=== PATIENT | female | born 1950 | race Caucasian/White ===

== ENCOUNTER 2018-05-24 14:27 | Inpatient (IN) | payer BC ==
[~2018-05-24] VITALS: Ht 157.5 cm; Wt 41.7 kg
[2018-05-24 14:40] VITALS: BP_SYST 150
[2018-05-24] MEDS ORDERED: NACL 0.9% 1,000 ML IV ONE (15:00)
[2018-05-24 15:11] LABS: BASOPHILS % (AUTO) 0.5 % (0.0-2.0); EOSINOPHILS % (AUTO) 0.3 % (0.0-4.0); HEMATOCRIT 44.4 % (36-48); HEMOGLOBIN 14.5 g/dL (12.0-16.0); LYMPHOCYTES # (AUTO) 0.7 K/uL (1.0-5.5); LYMPHOCYTES % (AUTO) 8.4 % (20.5-51.5); MEAN CORPUSCULAR HEMOGLOBIN 30 pg (27-31); MEAN CORPUSCULAR HGB CONC 33 % (32-36); MEAN CORPUSCULAR VOLUME 93 fL (79.0-98.0); MONOCYTES # (AUTO) 0.7 K/uL (0.0-1.0); MONOCYTES % (AUTO) 8.7 % (1.7-9.3); NEUTROPHILS # (AUTO) 6.4 K/uL (1.8-7.7); NEUTROPHILS % (AUTO) 82.1 % (40.0-70.0); PLATELET COUNT (AUTO) 220 K/uL (130-430); RED BLOOD CELL COUNT(AUTO) 4.78 MIL/uL (4.2-6.2); RED CELL DISTRIBUTION WIDTH 12.5 % (9.0-15.0); WHITE BLOOD COUNT (AUTO) 7.8 K/uL (4.8-10.8)
[2018-05-24 15:18] LABS: ANION GAP 10 (5-15); CALCIUM 10.7 mg/dL (8.4-11.0); CHLORIDE 118 mmol/L (98-107); CREATININE 1.41 mg/dL (0.55-1.30); GFR AFRICAN AMERICAN 48 mL/min (>90); GLUCOSE 114 mg/dL (70-99); POTASSIUM 4.1 mmol/L (3.5-5.1); SODIUM SERUM 152 mmol/L (136-145); UREA NITROGEN, BLOOD 18 mg/dL (8-21)
[2018-05-24 15:23] LABS: ALANINE AMINOTRANSFERASE 19 U/L (12-78); ALBUMIN 3.5 g/dL (3.4-4.8); ASPARTATE AMINOTRANSFERASE 20 U/L (10-37); TOTAL BILIRUBIN 0.4 mg/dL (0.0-1.0)
[2018-05-24 15:24] LABS: ACETAMINOPHEN < 1 ug/mL (1-30); ALCOHOL, BLOOD < 3 mg/dL (<10)
[2018-05-24 17:38] LABS: BILIRUBIN,URINE NEGATIVE (NEGATIVE); CLARITY/URINE CLEAR (CLEAR); COLOR,URINE YELLOW (YELLOW); GLUCOSE,URINE NEGATIVE (NEGATIVE); KETONES,URINE NEGATIVE (NEGATIVE); LEUKOCYTE ESTERASE ,URINE TRACE (NEGATIVE); NITRITE, URINE POSITIVE (NEGATIVE); PROTEIN URINE NEGATIVE (NEGATIVE); UROBILINOGEN,URINE 0.2 (0.2-1.0)
[2018-05-24 17:40] LABS: BLOOD, URINE TRACE (NEGATIVE)
[2018-05-24 17:43] LABS: BACTERIA,URINE MANY /HPF (None Seen)
[2018-05-24 17:52] LABS: BARBITURATE, URINE NEGATIVE (NEG <=200); BENZODIAZEPINE, URINE NEGATIVE (NEG <=150); CANNABINOID, URINE NEGATIVE (NEG <=50); COCAINE, URINE NEGATIVE (NEG <=150); METHAMPHETAMINES SCREEN,URINE NEGATIVE (NEG <=500); OPIATE, URINE NEGATIVE (NEG <=100); PHENCYCLIDINE SCREEN,URINE NEGATIVE (NEG <=25); UR TRICYCLIC ANTIDEPRESSANTS NEGATIVE (NEG <=300); URINE AMPHETAMINE NEGATIVE (NEG <=500); URINE METHADONE NEGATIVE (NEG <=200); URINE OXYCODONE SCREEN NEGATIVE (NEG <=100); URINE PROPOXYPHENE SCREEN NEGATIVE (NEG <=300)
[2018-05-24] MEDS ORDERED: SER25 PO (18:09)
[2018-05-24] MEDS ORDERED: ATOR10TA68 PO (18:09)
[2018-05-24] MEDS ORDERED: FLEETMO RC (18:09)
[2018-05-24] MEDS ORDERED: ASPI-1153 PO (18:09)
[2018-05-24] MEDS ORDERED: POLY17PO17 PO (18:09)
[2018-05-24] MEDS ORDERED: METH5TAB70 PO (18:09)
[2018-05-24] MEDS ORDERED: ANT30 PO (18:09)
[2018-05-24] MEDS ORDERED: LITH8SOL6 PO (18:09)
[2018-05-24] MEDS ORDERED: LACT10SO6 PO (18:09)
[2018-05-24] MEDS ORDERED: MOM PO (18:09)
[2018-05-24] MEDS ORDERED: AMLO5TAB4 PO (18:09)
[2018-05-24] MEDS ORDERED: ACET-2634 PO (18:09)
[2018-05-24] MEDS ORDERED: DEXTROSE 50% JECT 50 ML DISP.SYRIN IVP PRN ×2 (22:00)
[2018-05-24] MEDS ORDERED: LEVOFLOXACIN 500 MG/D5W 100 ML IV SCH (22:00)
[2018-05-24] MEDS ORDERED: HYDROcodone/ACETAMIN 5-325 MG TAB (NORCO/ VICODIN) PO PRN (22:00)
[2018-05-24] MEDS ORDERED: MAG-AL HYDROX/SIMETH 30 ML UDC PO PRN (22:00)
[2018-05-24] MEDS ORDERED: ACETAMINOPHEN 500 MG TABLET PO PRN (22:00)
[2018-05-24] MEDS ORDERED: MILK OF MAGNESIA 30 ML UDC PO PRN (22:00)
[2018-05-24] MEDS ORDERED: ONDANSETRON HCL 4 MG/2 ML VIAL IVP PRN (22:00)
[2018-05-24 22:15] VITALS: BP_SYST 151
[2018-05-24 22:27] VITALS: BP_SYST 151
[2018-05-24] MEDS ORDERED: D5W 1,000 ML IV SCH (22:45)
[2018-05-24] MEDS: NORMAL SALINE 5 ML DISP.SYRIN IVF SCH (22:49)
[2018-05-24] MEDS: D5W 1,000 ML IV SCH (22:49)
[2018-05-25 06:53] LABS: BASOPHILS % (AUTO) 0.4 % (0.0-2.0); EOSINOPHILS % (AUTO) 0.2 % (0.0-4.0); HEMATOCRIT 45.7 % (36-48); LYMPHOCYTES # (AUTO) 0.7 K/uL (1.0-5.5); LYMPHOCYTES % (AUTO) 9.1 % (20.5-51.5); MEAN CORPUSCULAR HEMOGLOBIN 31 pg (27-31); MEAN CORPUSCULAR HGB CONC 33 % (32-36); MEAN CORPUSCULAR VOLUME 95 fL (79.0-98.0); MONOCYTES # (AUTO) 0.6 K/uL (0.0-1.0); MONOCYTES % (AUTO) 8.5 % (1.7-9.3); NEUTROPHILS # (AUTO) 5.9 K/uL (1.8-7.7); NEUTROPHILS % (AUTO) 81.8 % (40.0-70.0); PLATELET COUNT (AUTO) 249 K/uL (130-430); RED BLOOD CELL COUNT(AUTO) 4.81 MIL/uL (4.2-6.2); RED CELL DISTRIBUTION WIDTH 12.7 % (9.0-15.0); WHITE BLOOD COUNT (AUTO) 7.2 K/uL (4.8-10.8)
[2018-05-25] MEDS: NORMAL SALINE 5 ML DISP.SYRIN IVF SCH ×3 (06:59→21:18)
[2018-05-25 07:26] LABS: ALANINE AMINOTRANSFERASE 25 U/L (12-78); ALBUMIN 3.5 g/dL (3.4-4.8); ANION GAP 9 (5-15); ASPARTATE AMINOTRANSFERASE 21 U/L (10-37); C-REACTIVE PROTEIN QUANT < 0.2 mg/dL (0-0.5); CALCIUM 10.5 mg/dL (8.4-11.0); CREATININE 1.47 mg/dL (0.55-1.30); GLUCOSE 138 mg/dL (70-99); PHOSPHORUS 3.5 mg/dL (2.7-4.5); POTASSIUM 4.1 mmol/L (3.5-5.1); SODIUM SERUM 153 mmol/L (136-145); TOTAL BILIRUBIN 0.6 mg/dL (0.0-1.0); UREA NITROGEN, BLOOD 18 mg/dL (8-21)
[2018-05-25 07:32] LABS: GFR AFRICAN AMERICAN 45 mL/min (>90)
[2018-05-25 07:34] LABS: CHLORIDE 121 mmol/L (98-107)
[2018-05-25 08:00] VITALS: BP_SYST 136
[2018-05-25 08:26] LABS: ERYTHROCYTE SEDIMENTATION RATE 9 MM/HR (0-20)
[2018-05-25] MEDS ORDERED: LITHIUM CITRATE 8 MEQ PO SCH (09:00)
[2018-05-25] MEDS: LORazepam 2 MG/ML VIAL IVP PRN ×2 (09:39→21:35)
[2018-05-25] MEDS: D5W 1,000 ML IV SCH ×2 (09:42→17:20)
[2018-05-25] MEDS: ATORVASTATIN 10 MG TABLET PO SCH (09:43)
[2018-05-25] MEDS: QUEtiapine FUMARATE 25 MG TABLET PO SCH ×2 (09:43→21:08)
[2018-05-25] MEDS: ASPIRIN 81 MG TABLET(ECOTRIN) PO SCH (09:43)
[2018-05-25] MEDS: METHIMAZOLE 5 MG TABLET PO SCH ×3 (09:43→21:08)
[2018-05-25] MEDS: LACTULOSE 20 GM/30 ML UDC PO SCH (09:44)
[2018-05-25] MEDS: amLODIPine BESYLATE 5 MG TABLET PO SCH (09:44)
[2018-05-25] MEDS: POLYETHYLENE GLYCOL 3350, 17 GM/ POWD.PACK PO SCH (09:44)
[2018-05-25] MEDS: MINERAL OIL 133 ML ENEMA RC SCH (09:51)
[2018-05-25 12:18] VITALS: BP_SYST 124
[2018-05-25 16:00] VITALS: BP_SYST 128
[2018-05-25] MEDS: LEVOFLOXACIN 250 MG/D5W 50 ML IV SCH (17:20)
[2018-05-25 19:50] VITALS: BP_SYST 123
[2018-05-25 23:54] VITALS: BP_SYST 121
[2018-05-26 04:55] VITALS: BP_SYST 138
[2018-05-26] MEDS: LORazepam 2 MG/ML VIAL IVP PRN ×4 (05:06→20:09)
[2018-05-26] MEDS: D5W 1,000 ML IV SCH ×2 (05:11→16:16)
[2018-05-26] MEDS: NORMAL SALINE 5 ML DISP.SYRIN IVF SCH ×3 (05:56→20:19)
[2018-05-26 06:52] LABS: BASOPHILS % (AUTO) 0.4 % (0.0-2.0); EOSINOPHILS # (AUTO) 0.1 K/uL (0.0-0.4); EOSINOPHILS % (AUTO) 1.9 % (0.0-4.0); HEMATOCRIT 41.8 % (36-48); HEMOGLOBIN 13.6 g/dL (12.0-16.0); LYMPHOCYTES # (AUTO) 1.6 K/uL (1.0-5.5); LYMPHOCYTES % (AUTO) 20.9 % (20.5-51.5); MEAN CORPUSCULAR HEMOGLOBIN 31 pg (27-31); MEAN CORPUSCULAR HGB CONC 33 % (32-36); MEAN CORPUSCULAR VOLUME 94 fL (79.0-98.0); MONOCYTES # (AUTO) 0.8 K/uL (0.0-1.0); MONOCYTES % (AUTO) 10.3 % (1.7-9.3); NEUTROPHILS # (AUTO) 4.9 K/uL (1.8-7.7); NEUTROPHILS % (AUTO) 66.5 % (40.0-70.0); PLATELET COUNT (AUTO) 211 K/uL (130-430); RED BLOOD CELL COUNT(AUTO) 4.43 MIL/uL (4.2-6.2); RED CELL DISTRIBUTION WIDTH 12.5 % (9.0-15.0); WHITE BLOOD COUNT (AUTO) 7.4 K/uL (4.8-10.8)
[2018-05-26 07:16] LABS: ANION GAP 8 (5-15); CALCIUM 9.5 mg/dL (8.4-11.0); CHLORIDE 110 mmol/L (98-107); CREATININE 1.39 mg/dL (0.55-1.30); GLUCOSE 108 mg/dL (70-99); PHOSPHORUS 2.6 mg/dL (2.7-4.5); POTASSIUM 3.7 mmol/L (3.5-5.1); SODIUM SERUM 140 mmol/L (136-145); UREA NITROGEN, BLOOD 17 mg/dL (8-21)
[2018-05-26 07:19] LABS: GFR AFRICAN AMERICAN 48 mL/min (>90)
[2018-05-26 07:31] LABS: C-REACTIVE PROTEIN QUANT < 0.2 mg/dL (0-0.5)
[2018-05-26 08:05] VITALS: BP_SYST 146
[2018-05-26] MEDS: METHIMAZOLE 5 MG TABLET PO SCH ×3 (08:33→20:08)
[2018-05-26] MEDS: ATORVASTATIN 10 MG TABLET PO SCH (08:33)
[2018-05-26] MEDS: LACTULOSE 20 GM/30 ML UDC PO SCH ×2 (08:33→09:00)
[2018-05-26] MEDS: ASPIRIN 81 MG TABLET(ECOTRIN) PO SCH (08:33)
[2018-05-26] MEDS: POLYETHYLENE GLYCOL 3350, 17 GM/ POWD.PACK PO SCH ×2 (08:34→09:00)
[2018-05-26] MEDS: QUEtiapine FUMARATE 25 MG TABLET PO SCH ×2 (08:34→20:08)
[2018-05-26] MEDS: amLODIPine BESYLATE 5 MG TABLET PO SCH (08:34)
[2018-05-26 08:38] LABS: ERYTHROCYTE SEDIMENTATION RATE 5 MM/HR (0-20)
[2018-05-26] MEDS: MINERAL OIL 133 ML ENEMA RC SCH (09:51)
[2018-05-26 11:16] VITALS: BP_SYST 142
[2018-05-26] MEDS ORDERED: K PHOS 15 MM in NS 250 ML IV ONE (13:00)
[2018-05-26 16:31] VITALS: BP_SYST 155
[2018-05-26] MEDS: LEVOFLOXACIN 250 MG/D5W 50 ML IV SCH (17:37)
[2018-05-26 20:00] VITALS: BP_SYST 151
[2018-05-27 00:09] VITALS: BP_SYST 150
[2018-05-27] MEDS: D5W 1,000 ML IV SCH ×3 (01:26→20:32)
[2018-05-27] MEDS: LORazepam 2 MG/ML VIAL IVP PRN ×5 (05:00→23:28)
[2018-05-27] MEDS: NORMAL SALINE 5 ML DISP.SYRIN IVF SCH ×3 (05:59→22:53)
[2018-05-27 06:24] LABS: BASOPHILS % (AUTO) 0.6 % (0.0-2.0); EOSINOPHILS # (AUTO) 0.1 K/uL (0.0-0.4); EOSINOPHILS % (AUTO) 2.2 % (0.0-4.0); HEMATOCRIT 41.5 % (36-48); HEMOGLOBIN 13.6 g/dL (12.0-16.0); LYMPHOCYTES # (AUTO) 1.4 K/uL (1.0-5.5); MEAN CORPUSCULAR HEMOGLOBIN 31 pg (27-31); MEAN CORPUSCULAR HGB CONC 33 % (32-36); MEAN CORPUSCULAR VOLUME 94 fL (79.0-98.0); MONOCYTES # (AUTO) 0.6 K/uL (0.0-1.0); MONOCYTES % (AUTO) 10.1 % (1.7-9.3); NEUTROPHILS # (AUTO) 3.7 K/uL (1.8-7.7); NEUTROPHILS % (AUTO) 63.1 % (40.0-70.0); PLATELET COUNT (AUTO) 209 K/uL (130-430); RED CELL DISTRIBUTION WIDTH 12.6 % (9.0-15.0); WHITE BLOOD COUNT (AUTO) 5.8 K/uL (4.8-10.8)
[2018-05-27 06:28] LABS: ANION GAP 11 (5-15); CALCIUM 9.2 mg/dL (8.4-11.0); CHLORIDE 115 mmol/L (98-107); CREATININE 1.25 mg/dL (0.55-1.30); GLUCOSE 104 mg/dL (70-99); PHOSPHORUS 3.7 mg/dL (2.7-4.5); POTASSIUM 3.7 mmol/L (3.5-5.1); SODIUM SERUM 148 mmol/L (136-145); UREA NITROGEN, BLOOD 14 mg/dL (8-21)
[2018-05-27 06:29] LABS: GFR AFRICAN AMERICAN 55 mL/min (>90)
[2018-05-27 07:40] LABS: C-REACTIVE PROTEIN QUANT < 0.2 mg/dL (0-0.5)
[2018-05-27 08:00] VITALS: BP_SYST 145
[2018-05-27] MEDS: METHIMAZOLE 5 MG TABLET PO SCH ×3 (08:07→20:32)
[2018-05-27] MEDS: POLYETHYLENE GLYCOL 3350, 17 GM/ POWD.PACK PO SCH ×2 (08:08→09:00)
[2018-05-27] MEDS: ATORVASTATIN 10 MG TABLET PO SCH (08:08)
[2018-05-27] MEDS: LACTULOSE 20 GM/30 ML UDC PO SCH ×2 (08:08→09:00)
[2018-05-27] MEDS: amLODIPine BESYLATE 5 MG TABLET PO SCH (08:08)
[2018-05-27] MEDS: QUEtiapine FUMARATE 25 MG TABLET PO SCH ×2 (08:08→20:32)
[2018-05-27] MEDS: ASPIRIN 81 MG TABLET(ECOTRIN) PO SCH (08:08)
[2018-05-27 08:34] LABS: ERYTHROCYTE SEDIMENTATION RATE 5 MM/HR (0-20)
[2018-05-27] MEDS: MINERAL OIL 133 ML ENEMA RC SCH (09:08)
[2018-05-27 12:11] VITALS: BP_SYST 123
[2018-05-27 16:01] VITALS: BP_SYST 119
[2018-05-27] MEDS: LEVOFLOXACIN 250 MG/D5W 50 ML IV SCH (17:11)
[2018-05-27] MEDS ORDERED: LEVOFLOXACIN 250 MG TABLET PO SCH (18:00)
[2018-05-27] MEDS: VANCOMYCIN HCL 750 MG in NS 250 ML IV SCH (18:26)
[2018-05-27 19:00] VITALS: BP_SYST 115
[2018-05-27 20:00] VITALS: BP_SYST 115
[2018-05-27] MEDS: MINERAL OIL/PETROLATUM,WHITE 113 GM CREAM.GM. TP SCH (20:48)
[2018-05-27] MEDS ORDERED: AMMONIUM LACTATE 12%, 400 ML LOTION TP SCH (21:00)
[2018-05-28 00:38] VITALS: BP_SYST 116
[2018-05-28] MEDS: NORMAL SALINE 5 ML DISP.SYRIN IVF SCH ×2 (05:25→22:01)
[2018-05-28] MEDS: D5W 1,000 ML IV SCH ×2 (05:26→23:35)
[2018-05-28 06:25] LABS: BASOPHILS % (AUTO) 0.6 % (0.0-2.0); EOSINOPHILS # (AUTO) 0.1 K/uL (0.0-0.4); EOSINOPHILS % (AUTO) 2.6 % (0.0-4.0); HEMATOCRIT 41.5 % (36-48); HEMOGLOBIN 13.5 g/dL (12.0-16.0); LYMPHOCYTES # (AUTO) 1.1 K/uL (1.0-5.5); LYMPHOCYTES % (AUTO) 22.9 % (20.5-51.5); MEAN CORPUSCULAR HEMOGLOBIN 31 pg (27-31); MEAN CORPUSCULAR HGB CONC 33 % (32-36); MEAN CORPUSCULAR VOLUME 94 fL (79.0-98.0); MONOCYTES # (AUTO) 0.5 K/uL (0.0-1.0); MONOCYTES % (AUTO) 11.2 % (1.7-9.3); NEUTROPHILS # (AUTO) 3.2 K/uL (1.8-7.7); NEUTROPHILS % (AUTO) 62.7 % (40.0-70.0); PLATELET COUNT (AUTO) 209 K/uL (130-430); RED CELL DISTRIBUTION WIDTH 12.5 % (9.0-15.0); WHITE BLOOD COUNT (AUTO) 4.9 K/uL (4.8-10.8)
[2018-05-28] MEDS: LORazepam 2 MG/ML VIAL IVP PRN ×3 (06:28→23:24)
[2018-05-28 06:46] LABS: C-REACTIVE PROTEIN QUANT 0.3 mg/dL (0-0.5); CALCIUM 9.7 mg/dL (8.4-11.0); CREATININE 1.18 mg/dL (0.55-1.30); PHOSPHORUS 3.2 mg/dL (2.7-4.5); POTASSIUM 3.6 mmol/L (3.5-5.1); TOTAL BILIRUBIN 0.5 mg/dL (0.0-1.0)
[2018-05-28 08:33] VITALS: BP_SYST 147
[2018-05-28 08:56] LABS: ERYTHROCYTE SEDIMENTATION RATE 7 MM/HR (0-20)
[2018-05-28] MEDS: MINERAL OIL 133 ML ENEMA RC SCH (09:00)
[2018-05-28] MEDS: QUEtiapine FUMARATE 25 MG TABLET PO SCH ×2 (09:25→22:02)
[2018-05-28] MEDS: amLODIPine BESYLATE 5 MG TABLET PO SCH (09:25)
[2018-05-28] MEDS: LACTULOSE 20 GM/30 ML UDC PO SCH (09:35)
[2018-05-28] MEDS: METHIMAZOLE 5 MG TABLET PO SCH ×2 (09:35→22:01)
[2018-05-28] MEDS: ATORVASTATIN 10 MG TABLET PO SCH (09:35)
[2018-05-28] MEDS: POLYETHYLENE GLYCOL 3350, 17 GM/ POWD.PACK PO SCH (09:35)
[2018-05-28] MEDS: ASPIRIN 81 MG TABLET(ECOTRIN) PO SCH (09:35)
[2018-05-28 11:42] VITALS: BP_SYST 136
[2018-05-28] MEDS: MINERAL OIL/PETROLATUM,WHITE 113 GM CREAM.GM. TP SCH ×2 (12:46→21:59)
[2018-05-28] MEDS ORDERED: LITHIUM CARBONATE 300 MG TABLET.SA PO ONE (13:00)
[2018-05-28] MEDS: LEVOFLOXACIN 250 MG/D5W 50 ML IV SCH (18:00)
[2018-05-28] MEDS: LITHIUM CARBONATE 300 MG TABLET.SA PO SCH (22:01)
[2018-05-29 00:02] VITALS: BP_SYST 122
[2018-05-29] MEDS: D5W 1,000 ML IV SCH ×3 (03:00→22:20)
[2018-05-29] MEDS ORDERED: HALOPERIDOL LACTATE 5 MG/ML VIAL IVP SCH (03:00)
[2018-05-29 04:04] VITALS: BP_SYST 104
[2018-05-29] MEDS: VANCOMYCIN HCL 750 MG in NS 250 ML IV SCH (07:08)
[2018-05-29] MEDS: NORMAL SALINE 5 ML DISP.SYRIN IVF SCH ×3 (07:08→20:25)
[2018-05-29 07:09] LABS: BASOPHILS % (AUTO) 0.6 % (0.0-2.0); EOSINOPHILS # (AUTO) 0.2 K/uL (0.0-0.4); EOSINOPHILS % (AUTO) 3.1 % (0.0-4.0); HEMATOCRIT 40.4 % (36-48); HEMOGLOBIN 13.4 g/dL (12.0-16.0); LYMPHOCYTES # (AUTO) 1.1 K/uL (1.0-5.5); LYMPHOCYTES % (AUTO) 22.6 % (20.5-51.5); MEAN CORPUSCULAR HEMOGLOBIN 31 pg (27-31); MEAN CORPUSCULAR HGB CONC 33 % (32-36); MEAN CORPUSCULAR VOLUME 94 fL (79.0-98.0); MONOCYTES # (AUTO) 0.7 K/uL (0.0-1.0); MONOCYTES % (AUTO) 13.4 % (1.7-9.3); NEUTROPHILS % (AUTO) 60.3 % (40.0-70.0); PLATELET COUNT (AUTO) 201 K/uL (130-430); RED CELL DISTRIBUTION WIDTH 12.6 % (9.0-15.0)
[2018-05-29 07:21] LABS: ANION GAP 7 (5-15); CALCIUM 9.7 mg/dL (8.4-11.0); CHLORIDE 113 mmol/L (98-107); CREATININE 1.38 mg/dL (0.55-1.30); GLUCOSE 151 mg/dL (70-99); PHOSPHORUS 3.2 mg/dL (2.7-4.5); POTASSIUM 3.6 mmol/L (3.5-5.1); SODIUM SERUM 145 mmol/L (136-145); UREA NITROGEN, BLOOD 13 mg/dL (8-21)
[2018-05-29 07:27] LABS: GFR AFRICAN AMERICAN 49 mL/min (>90)
[2018-05-29 07:41] LABS: C-REACTIVE PROTEIN QUANT < 0.2 mg/dL (0-0.5)
[2018-05-29 08:00] VITALS: BP_SYST 131
[2018-05-29 08:10] LABS: ERYTHROCYTE SEDIMENTATION RATE 8 MM/HR (0-20)
[2018-05-29] MEDS: LACTULOSE 20 GM/30 ML UDC PO SCH (08:36)
[2018-05-29] MEDS: ATORVASTATIN 10 MG TABLET PO SCH (08:37)
[2018-05-29] MEDS: LITHIUM CARBONATE 300 MG TABLET.SA PO SCH ×2 (08:37→20:20)
[2018-05-29] MEDS: amLODIPine BESYLATE 5 MG TABLET PO SCH (08:37)
[2018-05-29] MEDS: POLYETHYLENE GLYCOL 3350, 17 GM/ POWD.PACK PO SCH (08:37)
[2018-05-29] MEDS: METHIMAZOLE 5 MG TABLET PO SCH ×3 (08:37→20:19)
[2018-05-29] MEDS: QUEtiapine FUMARATE 25 MG TABLET PO SCH ×3 (08:37→20:20)
[2018-05-29] MEDS: ASPIRIN 81 MG TABLET(ECOTRIN) PO SCH (08:37)
[2018-05-29] MEDS: MINERAL OIL/PETROLATUM,WHITE 113 GM CREAM.GM. TP SCH ×2 (09:01→20:21)
[2018-05-29] MEDS: MINERAL OIL 133 ML ENEMA RC SCH (09:01)
[2018-05-29 12:00] VITALS: BP_SYST 116
[2018-05-29 16:00] VITALS: BP_SYST 117
[2018-05-29] MEDS: LEVOFLOXACIN 250 MG/D5W 50 ML IV SCH (17:04)
[2018-05-29 20:00] VITALS: BP_SYST 124
[2018-05-29] MEDS: LORazepam 2 MG/ML VIAL IVP PRN (20:20)
[2018-05-30] MEDS: LORazepam 2 MG/ML VIAL IVP PRN ×4 (00:30→22:21)
[2018-05-30 00:35] VITALS: BP_SYST 123
[2018-05-30] MEDS: NORMAL SALINE 5 ML DISP.SYRIN IVF SCH ×3 (05:34→22:22)
[2018-05-30 07:43] LABS: BASOPHILS % (AUTO) 0.5 % (0.0-2.0); EOSINOPHILS # (AUTO) 0.2 K/uL (0.0-0.4); EOSINOPHILS % (AUTO) 3.3 % (0.0-4.0); HEMOGLOBIN 13.7 g/dL (12.0-16.0); LYMPHOCYTES # (AUTO) 1.2 K/uL (1.0-5.5); MEAN CORPUSCULAR HEMOGLOBIN 30 pg (27-31); MEAN CORPUSCULAR HGB CONC 32 % (32-36); MEAN CORPUSCULAR VOLUME 95 fL (79.0-98.0); MONOCYTES # (AUTO) 0.6 K/uL (0.0-1.0); MONOCYTES % (AUTO) 10.2 % (1.7-9.3); NEUTROPHILS # (AUTO) 4.2 K/uL (1.8-7.7); PLATELET COUNT (AUTO) 191 K/uL (130-430); RED BLOOD CELL COUNT(AUTO) 4.53 MIL/uL (4.2-6.2); RED CELL DISTRIBUTION WIDTH 12.3 % (9.0-15.0); WHITE BLOOD COUNT (AUTO) 6.2 K/uL (4.8-10.8)
[2018-05-30 08:02] VITALS: BP_SYST 142
[2018-05-30 08:13] LABS: ALBUMIN 2.8 g/dL (3.4-4.8); C-REACTIVE PROTEIN QUANT 0.3 mg/dL (0-0.5); CALCIUM 9.9 mg/dL (8.4-11.0); CREATININE 1.38 mg/dL (0.55-1.30); PHOSPHORUS 3.1 mg/dL (2.7-4.5); POTASSIUM 3.9 mmol/L (3.5-5.1); TOTAL BILIRUBIN 0.7 mg/dL (0.0-1.0)
[2018-05-30 08:34] LABS: ERYTHROCYTE SEDIMENTATION RATE 7 MM/HR (0-20)
[2018-05-30] MEDS: MINERAL OIL 133 ML ENEMA RC SCH (09:00)
[2018-05-30] MEDS: POLYETHYLENE GLYCOL 3350, 17 GM/ POWD.PACK PO SCH (09:00)
[2018-05-30] MEDS: MINERAL OIL/PETROLATUM,WHITE 113 GM CREAM.GM. TP SCH ×2 (09:00→20:57)
[2018-05-30] MEDS: D5W 1,000 ML IV SCH ×2 (09:00→13:02)
[2018-05-30] MEDS: ASPIRIN 81 MG TABLET(ECOTRIN) PO SCH (10:44)
[2018-05-30] MEDS: LACTULOSE 20 GM/30 ML UDC PO SCH (10:44)
[2018-05-30] MEDS: ATORVASTATIN 10 MG TABLET PO SCH (10:45)
[2018-05-30] MEDS: LITHIUM CARBONATE 300 MG TABLET.SA PO SCH ×2 (10:45→20:51)
[2018-05-30] MEDS: OLANZapine 10 MG TAB.RAPDIS PO SCH ×3 (10:46→20:51)
[2018-05-30] MEDS: amLODIPine BESYLATE 5 MG TABLET PO SCH (10:46)
[2018-05-30] MEDS: METHIMAZOLE 5 MG TABLET PO SCH ×3 (11:27→20:51)
[2018-05-30 16:13] VITALS: BP_SYST 107
[2018-05-30] MEDS: LEVOFLOXACIN 250 MG/D5W 50 ML IV SCH (17:01)
[2018-05-30] MEDS: VANCOMYCIN HCL 750 MG in NS 250 ML IV SCH (18:17)
[2018-05-30 19:30] VITALS: BP_SYST 112
[2018-05-30 23:20] VITALS: BP_SYST 140
[2018-05-31] MEDS: D5W 1,000 ML IV SCH ×2 (02:19→14:18)
[2018-05-31] MEDS: NORMAL SALINE 5 ML DISP.SYRIN IVF SCH ×3 (05:47→22:56)
[2018-05-31 07:15] LABS: BASOPHILS % (AUTO) 0.5 % (0.0-2.0); EOSINOPHILS # (AUTO) 0.3 K/uL (0.0-0.4); EOSINOPHILS % (AUTO) 5.5 % (0.0-4.0); HEMATOCRIT 41.3 % (36-48); HEMOGLOBIN 13.6 g/dL (12.0-16.0); LYMPHOCYTES # (AUTO) 1.3 K/uL (1.0-5.5); LYMPHOCYTES % (AUTO) 26.8 % (20.5-51.5); MEAN CORPUSCULAR HEMOGLOBIN 31 pg (27-31); MEAN CORPUSCULAR HGB CONC 33 % (32-36); MEAN CORPUSCULAR VOLUME 95 fL (79.0-98.0); MONOCYTES # (AUTO) 0.5 K/uL (0.0-1.0); MONOCYTES % (AUTO) 11.1 % (1.7-9.3); NEUTROPHILS # (AUTO) 2.7 K/uL (1.8-7.7); NEUTROPHILS % (AUTO) 56.1 % (40.0-70.0); PLATELET COUNT (AUTO) 191 K/uL (130-430); RED BLOOD CELL COUNT(AUTO) 4.36 MIL/uL (4.2-6.2); RED CELL DISTRIBUTION WIDTH 12.3 % (9.0-15.0); WHITE BLOOD COUNT (AUTO) 4.8 K/uL (4.8-10.8)
[2018-05-31 07:19] LABS: C-REACTIVE PROTEIN QUANT 0.4 mg/dL (0-0.5); CALCIUM 9.7 mg/dL (8.4-11.0); CREATININE 1.32 mg/dL (0.55-1.30); PHOSPHORUS 3.8 mg/dL (2.7-4.5); POTASSIUM 4.1 mmol/L (3.5-5.1)
[2018-05-31 08:12] VITALS: BP_SYST 124
[2018-05-31] MEDS: LITHIUM CARBONATE 300 MG TABLET.SA PO SCH ×2 (08:30→20:28)
[2018-05-31] MEDS: ASPIRIN 81 MG TABLET(ECOTRIN) PO SCH (08:30)
[2018-05-31] MEDS: ATORVASTATIN 10 MG TABLET PO SCH (08:30)
[2018-05-31] MEDS: METHIMAZOLE 5 MG TABLET PO SCH ×4 (08:30→20:28)
[2018-05-31] MEDS: LACTULOSE 20 GM/30 ML UDC PO SCH (08:30)
[2018-05-31] MEDS: OLANZapine 10 MG TAB.RAPDIS PO SCH ×4 (08:31→20:28)
[2018-05-31] MEDS: amLODIPine BESYLATE 5 MG TABLET PO SCH (08:31)
[2018-05-31] MEDS: POLYETHYLENE GLYCOL 3350, 17 GM/ POWD.PACK PO SCH (08:31)
[2018-05-31] MEDS: MINERAL OIL/PETROLATUM,WHITE 113 GM CREAM.GM. TP SCH ×2 (08:32→20:58)
[2018-05-31] MEDS: MINERAL OIL 133 ML ENEMA RC SCH (09:00)
[2018-05-31 09:22] LABS: ERYTHROCYTE SEDIMENTATION RATE 9 MM/HR (0-20)
[2018-05-31] MEDS: LORazepam 2 MG/ML VIAL IVP PRN ×2 (10:45→18:45)
[2018-05-31 12:02] VITALS: BP_SYST 107
[2018-05-31 17:53] VITALS: BP_SYST 116
[2018-05-31] MEDS: LEVOFLOXACIN 250 MG/D5W 50 ML IV SCH (18:14)
[2018-05-31] MEDS: VANCOMYCIN HCL 750 MG in NS 250 ML IV SCH (19:41)
[2018-05-31 20:20] VITALS: BP_SYST 120
[2018-05-31] MEDS: HYDROcodone/ACETAMIN 10-325 MG TAB PO PRN (20:29)
[2018-05-31 23:10] VITALS: BP_SYST 124
[2018-06-01 00:53] VITALS: BP_SYST 124
[2018-06-01] MEDS: D5W 1,000 ML IV SCH ×3 (03:06→21:00)
[2018-06-01] MEDS: LORazepam 2 MG/ML VIAL IVP PRN ×3 (03:58→20:22)
[2018-06-01] MEDS: NORMAL SALINE 5 ML DISP.SYRIN IVF SCH ×3 (06:00→21:10)
[2018-06-01] MEDS ORDERED: HALOPERIDOL LACTATE 5 MG/ML VIAL IM ONE (06:30)
[2018-06-01 07:11] LABS: BASOPHILS % (AUTO) 0.5 % (0.0-2.0); EOSINOPHILS # (AUTO) 0.2 K/uL (0.0-0.4); EOSINOPHILS % (AUTO) 4.3 % (0.0-4.0); HEMATOCRIT 40.8 % (36-48); HEMOGLOBIN 13.3 g/dL (12.0-16.0); LYMPHOCYTES % (AUTO) 19.8 % (20.5-51.5); MEAN CORPUSCULAR HEMOGLOBIN 31 pg (27-31); MEAN CORPUSCULAR HGB CONC 33 % (32-36); MEAN CORPUSCULAR VOLUME 94 fL (79.0-98.0); MONOCYTES # (AUTO) 0.6 K/uL (0.0-1.0); MONOCYTES % (AUTO) 12.4 % (1.7-9.3); PLATELET COUNT (AUTO) 194 K/uL (130-430); RED BLOOD CELL COUNT(AUTO) 4.33 MIL/uL (4.2-6.2); RED CELL DISTRIBUTION WIDTH 12.4 % (9.0-15.0); WHITE BLOOD COUNT (AUTO) 4.8 K/uL (4.8-10.8)
[2018-06-01 07:46] LABS: ALANINE AMINOTRANSFERASE 22 U/L (12-78); ALBUMIN 2.8 g/dL (3.4-4.8); ANION GAP 6 (5-15); ASPARTATE AMINOTRANSFERASE 20 U/L (10-37); CALCIUM 9.7 mg/dL (8.4-11.0); CHLORIDE 111 mmol/L (98-107); CREATININE 1.32 mg/dL (0.55-1.30); GLUCOSE 89 mg/dL (70-99); PHOSPHORUS 3.6 mg/dL (2.7-4.5); POTASSIUM 4.1 mmol/L (3.5-5.1); SODIUM SERUM 143 mmol/L (136-145); TOTAL BILIRUBIN 0.5 mg/dL (0.0-1.0); UREA NITROGEN, BLOOD 13 mg/dL (8-21)
[2018-06-01 08:02] VITALS: BP_SYST 117
[2018-06-01] MEDS: POLYETHYLENE GLYCOL 3350, 17 GM/ POWD.PACK PO SCH (08:27)
[2018-06-01] MEDS: amLODIPine BESYLATE 5 MG TABLET PO SCH (08:28)
[2018-06-01] MEDS: ATORVASTATIN 10 MG TABLET PO SCH (08:28)
[2018-06-01] MEDS: ASPIRIN 81 MG TABLET(ECOTRIN) PO SCH (08:28)
[2018-06-01] MEDS: LITHIUM CARBONATE 300 MG TABLET.SA PO SCH ×2 (08:29→21:08)
[2018-06-01] MEDS: LACTULOSE 20 GM/30 ML UDC PO SCH (08:29)
[2018-06-01] MEDS: METHIMAZOLE 5 MG TABLET PO SCH ×3 (08:30→21:08)
[2018-06-01] MEDS: OLANZapine 10 MG TAB.RAPDIS PO SCH ×3 (08:30→21:08)
[2018-06-01] MEDS: MINERAL OIL 133 ML ENEMA RC SCH (08:30)
[2018-06-01] MEDS: MINERAL OIL/PETROLATUM,WHITE 113 GM CREAM.GM. TP SCH ×2 (08:32→21:09)
[2018-06-01 08:40] LABS: GFR AFRICAN AMERICAN 51 mL/min (>90)
[2018-06-01 08:55] LABS: C-REACTIVE PROTEIN QUANT < 0.2 mg/dL (0-0.5)
[2018-06-01 09:02] LABS: ERYTHROCYTE SEDIMENTATION RATE 7 MM/HR (0-20)
[2018-06-01 16:30] VITALS: BP_SYST 111
[2018-06-01] MEDS: LEVOFLOXACIN 250 MG/D5W 50 ML IV SCH (17:18)
[2018-06-01 19:00] VITALS: BP_SYST 111
[2018-06-01 20:00] VITALS: BP_SYST 111
[2018-06-01] MEDS: VANCOMYCIN HCL 750 MG in NS 250 ML IV SCH (20:54)
[2018-06-02] MEDS: LORazepam 2 MG/ML VIAL IVP PRN ×3 (00:17→20:36)
[2018-06-02] MEDS: D5W 1,000 ML IV SCH ×2 (05:43→14:56)
[2018-06-02] MEDS: NORMAL SALINE 5 ML DISP.SYRIN IVF SCH ×3 (05:43→20:19)
[2018-06-02 06:55] LABS: BASOPHILS % (AUTO) 0.5 % (0.0-2.0); EOSINOPHILS # (AUTO) 0.2 K/uL (0.0-0.4); EOSINOPHILS % (AUTO) 3.9 % (0.0-4.0); HEMATOCRIT 41.7 % (36-48); HEMOGLOBIN 13.5 g/dL (12.0-16.0); LYMPHOCYTES # (AUTO) 1.1 K/uL (1.0-5.5); LYMPHOCYTES % (AUTO) 21.8 % (20.5-51.5); MEAN CORPUSCULAR HEMOGLOBIN 30 pg (27-31); MEAN CORPUSCULAR HGB CONC 33 % (32-36); MEAN CORPUSCULAR VOLUME 94 fL (79.0-98.0); MONOCYTES # (AUTO) 0.7 K/uL (0.0-1.0); MONOCYTES % (AUTO) 14.2 % (1.7-9.3); NEUTROPHILS # (AUTO) 3.2 K/uL (1.8-7.7); NEUTROPHILS % (AUTO) 59.6 % (40.0-70.0); PLATELET COUNT (AUTO) 213 K/uL (130-430); RED BLOOD CELL COUNT(AUTO) 4.45 MIL/uL (4.2-6.2); RED CELL DISTRIBUTION WIDTH 12.6 % (9.0-15.0); WHITE BLOOD COUNT (AUTO) 5.2 K/uL (4.8-10.8)
[2018-06-02 07:38] LABS: CALCIUM 10.8 mg/dL (8.4-11.0); CREATININE 1.4 mg/dL (0.55-1.30)
[2018-06-02 07:39] LABS: C-REACTIVE PROTEIN QUANT 0.4 mg/dL (0-0.5); PHOSPHORUS 3.7 mg/dL (2.7-4.5)
[2018-06-02 08:12] VITALS: BP_SYST 140
[2018-06-02] MEDS: LITHIUM CARBONATE 300 MG TABLET.SA PO SCH ×2 (08:27→20:16)
[2018-06-02] MEDS: ATORVASTATIN 10 MG TABLET PO SCH (08:27)
[2018-06-02] MEDS: METHIMAZOLE 5 MG TABLET PO SCH ×3 (08:27→20:15)
[2018-06-02] MEDS: OLANZapine 10 MG TAB.RAPDIS PO SCH ×2 (08:27→14:55)
[2018-06-02] MEDS: ASPIRIN 81 MG TABLET(ECOTRIN) PO SCH (08:27)
[2018-06-02] MEDS: amLODIPine BESYLATE 5 MG TABLET PO SCH (08:28)
[2018-06-02] MEDS: MINERAL OIL/PETROLATUM,WHITE 113 GM CREAM.GM. TP SCH ×2 (08:39→20:20)
[2018-06-02] MEDS: POLYETHYLENE GLYCOL 3350, 17 GM/ POWD.PACK PO SCH (08:40)
[2018-06-02] MEDS: LACTULOSE 20 GM/30 ML UDC PO SCH (08:40)
[2018-06-02 09:58] LABS: ERYTHROCYTE SEDIMENTATION RATE 14 MM/HR (0-20)
[2018-06-02 13:11] VITALS: BP_SYST 102; BP_SYST 126
[2018-06-02 17:10] VITALS: BP_SYST 111
[2018-06-02 20:00] VITALS: BP_SYST 137
[2018-06-02] MEDS: HYDROcodone/ACETAMIN 10-325 MG TAB PO PRN (22:48)
[2018-06-03 00:38] VITALS: BP_SYST 118
[2018-06-03] MEDS: D5W 1,000 ML IV SCH ×2 (00:54→09:52)
[2018-06-03] MEDS: LORazepam 2 MG/ML VIAL IVP PRN ×3 (01:33→22:15)
[2018-06-03] MEDS: NORMAL SALINE 5 ML DISP.SYRIN IVF SCH (05:53)
[2018-06-03 07:51] VITALS: BP_SYST 139
[2018-06-03] MEDS: ASPIRIN 81 MG TABLET(ECOTRIN) PO SCH (08:09)
[2018-06-03] MEDS: LACTULOSE 20 GM/30 ML UDC PO SCH (08:09)
[2018-06-03] MEDS: POLYETHYLENE GLYCOL 3350, 17 GM/ POWD.PACK PO SCH (08:09)
[2018-06-03] MEDS: ATORVASTATIN 10 MG TABLET PO SCH (08:10)
[2018-06-03] MEDS: ARIPiprazole 5 MG TAB PO SCH (08:10)
[2018-06-03] MEDS: LITHIUM CARBONATE 300 MG TABLET.SA PO SCH ×2 (08:10→22:14)
[2018-06-03] MEDS: amLODIPine BESYLATE 5 MG TABLET PO SCH (08:10)
[2018-06-03] MEDS: METHIMAZOLE 5 MG TABLET PO SCH ×3 (08:11→22:14)
[2018-06-03] MEDS: MINERAL OIL/PETROLATUM,WHITE 113 GM CREAM.GM. TP SCH ×2 (08:12→22:16)
[2018-06-03] MEDS: ACETAMINOPHEN 325 MG TABLET PO PRN (08:26)
[2018-06-03 11:35] VITALS: BP_SYST 90
[2018-06-03] MEDS ORDERED: HYDROcodone/ACETAMIN 5-325 MG TAB (NORCO/ VICODIN) PO PRN (12:15)
[2018-06-03] MEDS ORDERED: NA PHOS,M-B/NA PHOS,DI-BA 118 ML (FLEET ENEMA) RC PRN (12:30)
[2018-06-03 14:22] LABS: C-REACTIVE PROTEIN QUANT 0.4 mg/dL (0-0.5); CALCIUM 9.9 mg/dL (8.4-11.0); CREATININE 1.47 mg/dL (0.55-1.30); PHOSPHORUS 4.4 mg/dL (2.7-4.5); POTASSIUM 3.6 mmol/L (3.5-5.1)
[2018-06-03 14:34] LABS: BASOPHILS % (AUTO) 0.8 % (0.0-2.0); EOSINOPHILS # (AUTO) 0.2 K/uL (0.0-0.4); EOSINOPHILS % (AUTO) 4.9 % (0.0-4.0); HEMATOCRIT 38.9 % (36-48); HEMOGLOBIN 12.9 g/dL (12.0-16.0); LYMPHOCYTES # (AUTO) 0.9 K/uL (1.0-5.5); LYMPHOCYTES % (AUTO) 20.4 % (20.5-51.5); MEAN CORPUSCULAR HEMOGLOBIN 31 pg (27-31); MEAN CORPUSCULAR HGB CONC 33 % (32-36); MEAN CORPUSCULAR VOLUME 94 fL (79.0-98.0); MONOCYTES # (AUTO) 0.6 K/uL (0.0-1.0); NEUTROPHILS # (AUTO) 2.8 K/uL (1.8-7.7); NEUTROPHILS % (AUTO) 60.9 % (40.0-70.0); PLATELET COUNT (AUTO) 193 K/uL (130-430); RED BLOOD CELL COUNT(AUTO) 4.16 MIL/uL (4.2-6.2); RED CELL DISTRIBUTION WIDTH 12.6 % (9.0-15.0); WHITE BLOOD COUNT (AUTO) 4.5 K/uL (4.8-10.8)
[2018-06-03 15:20] VITALS: BP_SYST 113
[2018-06-03 17:07] LABS: ERYTHROCYTE SEDIMENTATION RATE 13 MM/HR (0-20)
[2018-06-03] MEDS ORDERED: 0.45% NACL 1,000 ML IV SCH (17:30)
[2018-06-03] MEDS: D5/0.45 NS 1,000 ML IV SCH (18:28)
[2018-06-03 19:47] VITALS: BP_SYST 118
[2018-06-04 00:01] VITALS: BP_SYST 121
[2018-06-04] MEDS: D5/0.45 NS 1,000 ML IV SCH ×3 (02:11→18:31)
[2018-06-04] MEDS: LORazepam 2 MG/ML VIAL IVP PRN ×6 (07:27→23:34)
[2018-06-04 07:55] LABS: BASOPHILS % (AUTO) 0.6 % (0.0-2.0); EOSINOPHILS # (AUTO) 0.2 K/uL (0.0-0.4); EOSINOPHILS % (AUTO) 3.8 % (0.0-4.0); HEMATOCRIT 36.2 % (36-48); HEMOGLOBIN 11.9 g/dL (12.0-16.0); LYMPHOCYTES # (AUTO) 1.2 K/uL (1.0-5.5); LYMPHOCYTES % (AUTO) 23.1 % (20.5-51.5); MEAN CORPUSCULAR HEMOGLOBIN 31 pg (27-31); MEAN CORPUSCULAR HGB CONC 33 % (32-36); MEAN CORPUSCULAR VOLUME 94 fL (79.0-98.0); MONOCYTES # (AUTO) 0.7 K/uL (0.0-1.0); MONOCYTES % (AUTO) 12.7 % (1.7-9.3); NEUTROPHILS # (AUTO) 3.3 K/uL (1.8-7.7); NEUTROPHILS % (AUTO) 59.8 % (40.0-70.0); PLATELET COUNT (AUTO) 194 K/uL (130-430); RED BLOOD CELL COUNT(AUTO) 3.84 MIL/uL (4.2-6.2); RED CELL DISTRIBUTION WIDTH 12.6 % (9.0-15.0); WHITE BLOOD COUNT (AUTO) 5.4 K/uL (4.8-10.8)
[2018-06-04 08:06] LABS: CALCIUM 9.6 mg/dL (8.4-11.0); CREATININE 1.5 mg/dL (0.55-1.30); POTASSIUM 3.9 mmol/L (3.5-5.1)
[2018-06-04 08:18] LABS: ALBUMIN 2.3 g/dL (3.4-4.8); PHOSPHORUS 3.5 mg/dL (2.7-4.5); TOTAL BILIRUBIN 0.4 mg/dL (0.0-1.0)
[2018-06-04] MEDS: POLYETHYLENE GLYCOL 3350, 17 GM/ POWD.PACK PO SCH (08:35)
[2018-06-04] MEDS: ATORVASTATIN 10 MG TABLET PO SCH (08:35)
[2018-06-04] MEDS: LITHIUM CARBONATE 300 MG TABLET.SA PO SCH ×2 (08:35→21:15)
[2018-06-04] MEDS: ASPIRIN 81 MG TABLET(ECOTRIN) PO SCH (08:35)
[2018-06-04] MEDS: ARIPiprazole 5 MG TAB PO SCH (08:35)
[2018-06-04] MEDS: MINERAL OIL/PETROLATUM,WHITE 113 GM CREAM.GM. TP SCH ×2 (08:36→21:16)
[2018-06-04] MEDS: amLODIPine BESYLATE 5 MG TABLET PO SCH (08:36)
[2018-06-04 08:47] VITALS: BP_SYST 100
[2018-06-04] MEDS: METHIMAZOLE 5 MG TABLET PO SCH ×3 (09:00→21:15)
[2018-06-04 12:32] VITALS: BP_SYST 119
[2018-06-04 15:48] VITALS: BP_SYST 127
[2018-06-04 21:05] VITALS: BP_SYST 123
[2018-06-05] MEDS: D5/0.45 NS 1,000 ML IV SCH (02:26)
[2018-06-05] MEDS: LORazepam 2 MG/ML VIAL IVP PRN ×4 (03:35→20:51)
[2018-06-05 04:00] VITALS: BP_SYST 136
[2018-06-05] MEDS ORDERED: HALOPERIDOL LACTATE 5 MG/ML VIAL IM ONE (05:15)
[2018-06-05 07:36] LABS: CALCIUM 10.6 mg/dL (8.4-11.0); CREATININE 1.37 mg/dL (0.55-1.30); POTASSIUM 4.1 mmol/L (3.5-5.1)
[2018-06-05 07:43] LABS: BASOPHILS % (AUTO) 0.6 % (0.0-2.0); EOSINOPHILS # (AUTO) 0.2 K/uL (0.0-0.4); EOSINOPHILS % (AUTO) 2.4 % (0.0-4.0); HEMATOCRIT 36.9 % (36-48); HEMOGLOBIN 12.3 g/dL (12.0-16.0); LYMPHOCYTES # (AUTO) 1.1 K/uL (1.0-5.5); LYMPHOCYTES % (AUTO) 17.7 % (20.5-51.5); MEAN CORPUSCULAR HEMOGLOBIN 32 pg (27-31); MEAN CORPUSCULAR HGB CONC 33 % (32-36); MONOCYTES # (AUTO) 0.9 K/uL (0.0-1.0); MONOCYTES % (AUTO) 14.8 % (1.7-9.3); NEUTROPHILS # (AUTO) 4.2 K/uL (1.8-7.7); NEUTROPHILS % (AUTO) 64.5 % (40.0-70.0); PLATELET COUNT (AUTO) 238 K/uL (130-430); RED BLOOD CELL COUNT(AUTO) 3.86 MIL/uL (4.2-6.2); RED CELL DISTRIBUTION WIDTH 12.5 % (9.0-15.0); WHITE BLOOD COUNT (AUTO) 6.4 K/uL (4.8-10.8)
[2018-06-05 07:46] VITALS: BP_SYST 137
[2018-06-05 07:55] LABS: MEAN CORPUSCULAR VOLUME 96 fL (79.0-98.0)
[2018-06-05] MEDS: POLYETHYLENE GLYCOL 3350, 17 GM/ POWD.PACK PO SCH (09:41)
[2018-06-05] MEDS: LITHIUM CARBONATE 300 MG TABLET.SA PO SCH ×2 (09:42→21:00)
[2018-06-05] MEDS: METHIMAZOLE 5 MG TABLET PO SCH ×3 (09:44→21:00)
[2018-06-05] MEDS: ATORVASTATIN 10 MG TABLET PO SCH (09:45)
[2018-06-05] MEDS: ASPIRIN 81 MG TABLET(ECOTRIN) PO SCH (09:45)
[2018-06-05] MEDS: amLODIPine BESYLATE 5 MG TABLET PO SCH (09:45)
[2018-06-05] MEDS: ARIPiprazole 5 MG TAB PO SCH (09:45)
[2018-06-05] MEDS: MINERAL OIL/PETROLATUM,WHITE 113 GM CREAM.GM. TP SCH ×2 (09:47→21:24)
[2018-06-05] MEDS: D5W 1,000 ML IV SCH (10:33)
[2018-06-05 11:32] VITALS: BP_SYST 120
[2018-06-05 16:02] VITALS: BP_SYST 133
[2018-06-05 20:00] VITALS: BP_SYST 140
[2018-06-05] MEDS ORDERED: HALOPERIDOL LACTATE 5 MG/ML VIAL IVP ONE (21:15)
[2018-06-05] MEDS ORDERED: HALOPERIDOL LACTATE 5 MG/ML VIAL ONE (21:24)
[2018-06-06] VITALS: BP_SYST 167
[2018-06-06] MEDS: D5W 1,000 ML IV SCH ×2 (00:43→14:32)
[2018-06-06 06:55] LABS: BASOPHILS # (AUTO) 0.1 K/uL (0.0-0.2); BASOPHILS % (AUTO) 0.8 % (0.0-2.0); EOSINOPHILS # (AUTO) 0.1 K/uL (0.0-0.4); EOSINOPHILS % (AUTO) 2.3 % (0.0-4.0); HEMATOCRIT 37.5 % (36-48); HEMOGLOBIN 12.4 g/dL (12.0-16.0); LYMPHOCYTES # (AUTO) 1.2 K/uL (1.0-5.5); LYMPHOCYTES % (AUTO) 19.8 % (20.5-51.5); MEAN CORPUSCULAR HEMOGLOBIN 31 pg (27-31); MEAN CORPUSCULAR HGB CONC 33 % (32-36); MEAN CORPUSCULAR VOLUME 95 fL (79.0-98.0); MONOCYTES # (AUTO) 0.8 K/uL (0.0-1.0); MONOCYTES % (AUTO) 12.5 % (1.7-9.3); NEUTROPHILS # (AUTO) 4.1 K/uL (1.8-7.7); NEUTROPHILS % (AUTO) 64.6 % (40.0-70.0); PLATELET COUNT (AUTO) 231 K/uL (130-430); RED BLOOD CELL COUNT(AUTO) 3.96 MIL/uL (4.2-6.2); RED CELL DISTRIBUTION WIDTH 13.1 % (9.0-15.0); WHITE BLOOD COUNT (AUTO) 6.3 K/uL (4.8-10.8)
[2018-06-06 07:23] LABS: CREATININE 1.35 mg/dL (0.55-1.30); PHOSPHORUS 3.3 mg/dL (2.7-4.5)
[2018-06-06 08:00] VITALS: BP_SYST 137
[2018-06-06] MEDS: ASPIRIN 81 MG TABLET(ECOTRIN) PO SCH (09:46)
[2018-06-06] MEDS: LITHIUM CARBONATE 300 MG TABLET.SA PO SCH ×2 (09:46→22:23)
[2018-06-06] MEDS: ATORVASTATIN 10 MG TABLET PO SCH (09:46)
[2018-06-06] MEDS: ARIPiprazole 5 MG TAB PO SCH (09:46)
[2018-06-06] MEDS: POLYETHYLENE GLYCOL 3350, 17 GM/ POWD.PACK PO SCH (09:46)
[2018-06-06] MEDS: MINERAL OIL/PETROLATUM,WHITE 113 GM CREAM.GM. TP SCH ×2 (09:47→22:24)
[2018-06-06] MEDS: amLODIPine BESYLATE 5 MG TABLET PO SCH (09:47)
[2018-06-06] MEDS: METHIMAZOLE 5 MG TABLET PO SCH ×3 (09:47→22:23)
[2018-06-06 11:35] VITALS: BP_SYST 118
[2018-06-06 15:49] VITALS: BP_SYST 133
[2018-06-07 00:02] VITALS: BP_SYST 134
[2018-06-07] MEDS: D5W 1,000 ML IV SCH ×2 (03:29→16:09)
[2018-06-07 08:10] VITALS: BP_SYST 156
[2018-06-07] MEDS: ATORVASTATIN 10 MG TABLET PO SCH (08:22)
[2018-06-07] MEDS: METHIMAZOLE 5 MG TABLET PO SCH ×4 (08:22→21:46)
[2018-06-07] MEDS: ASPIRIN 81 MG TABLET(ECOTRIN) PO SCH (08:22)
[2018-06-07] MEDS: POLYETHYLENE GLYCOL 3350, 17 GM/ POWD.PACK PO SCH (08:22)
[2018-06-07] MEDS: MINERAL OIL/PETROLATUM,WHITE 113 GM CREAM.GM. TP SCH ×2 (08:23→21:49)
[2018-06-07] MEDS: amLODIPine BESYLATE 5 MG TABLET PO SCH (08:23)
[2018-06-07] MEDS: ARIPiprazole 5 MG TAB PO SCH (08:23)
[2018-06-07] MEDS: LITHIUM CARBONATE 300 MG TABLET.SA PO SCH ×2 (08:23→21:46)
[2018-06-07 08:41] LABS: CALCIUM 10.6 mg/dL (8.4-11.0); CREATININE 1.4 mg/dL (0.55-1.30); POTASSIUM 4.3 mmol/L (3.5-5.1)
[2018-06-07 08:57] LABS: C-REACTIVE PROTEIN QUANT 0.2 mg/dL (0-0.5)
[2018-06-07] MEDS: LORazepam 2 MG/ML VIAL IVP PRN ×3 (11:03→23:39)
[2018-06-07 20:30] VITALS: BP_SYST 115
[2018-06-08 00:48] VITALS: BP_SYST 141
[2018-06-08] MEDS: LORazepam 2 MG/ML VIAL IVP PRN (05:25)
[2018-06-08] MEDS: D5W 1,000 ML IV SCH ×2 (05:25→17:01)
[2018-06-08 07:30] LABS: ALBUMIN 2.6 g/dL (3.4-4.8); CALCIUM 10.1 mg/dL (8.4-11.0); CREATININE 1.54 mg/dL (0.55-1.30); PHOSPHORUS 3.5 mg/dL (2.7-4.5); TOTAL BILIRUBIN 0.4 mg/dL (0.0-1.0)
[2018-06-08 07:43] LABS: BASOPHILS # (AUTO) 0.1 K/uL (0.0-0.2); BASOPHILS % (AUTO) 1.3 % (0.0-2.0); EOSINOPHILS # (AUTO) 0.1 K/uL (0.0-0.4); EOSINOPHILS % (AUTO) 2.4 % (0.0-4.0); HEMATOCRIT 32.7 % (36-48); LYMPHOCYTES # (AUTO) 1.3 K/uL (1.0-5.5); LYMPHOCYTES % (AUTO) 23.5 % (20.5-51.5); MEAN CORPUSCULAR HEMOGLOBIN 32 pg (27-31); MEAN CORPUSCULAR HGB CONC 34 % (32-36); MEAN CORPUSCULAR VOLUME 96 fL (79.0-98.0); MONOCYTES # (AUTO) 0.5 K/uL (0.0-1.0); MONOCYTES % (AUTO) 9.7 % (1.7-9.3); NEUTROPHILS # (AUTO) 3.5 K/uL (1.8-7.7); NEUTROPHILS % (AUTO) 63.1 % (40.0-70.0); PLATELET COUNT (AUTO) 248 K/uL (130-430); RED BLOOD CELL COUNT(AUTO) 3.42 MIL/uL (4.2-6.2); RED CELL DISTRIBUTION WIDTH 13.6 % (9.0-15.0); WHITE BLOOD COUNT (AUTO) 5.5 K/uL (4.8-10.8)
[2018-06-08 08:00] VITALS: BP_SYST 142
[2018-06-08] MEDS: ATORVASTATIN 10 MG TABLET PO SCH (08:52)
[2018-06-08] MEDS: LITHIUM CARBONATE 300 MG TABLET.SA PO SCH ×2 (08:52→21:35)
[2018-06-08] MEDS: ARIPiprazole 5 MG TAB PO SCH (08:52)
[2018-06-08] MEDS: ASPIRIN 81 MG TABLET(ECOTRIN) PO SCH (08:52)
[2018-06-08] MEDS: METHIMAZOLE 5 MG TABLET PO SCH ×3 (08:53→21:35)
[2018-06-08] MEDS: amLODIPine BESYLATE 5 MG TABLET PO SCH (08:53)
[2018-06-08] MEDS: POLYETHYLENE GLYCOL 3350, 17 GM/ POWD.PACK PO SCH (08:54)
[2018-06-08] MEDS: MINERAL OIL/PETROLATUM,WHITE 113 GM CREAM.GM. TP SCH ×2 (08:55→21:36)
[2018-06-08 11:04] VITALS: BP_SYST 131
[2018-06-08 15:59] VITALS: BP_SYST 139
[2018-06-08 20:00] VITALS: BP_SYST 150
[2018-06-08 23:12] VITALS: BP_SYST 110
[2018-06-09 05:35] VITALS: BP_SYST 139
[2018-06-09] MEDS: D5W 1,000 ML IV SCH ×2 (05:59→18:39)
[2018-06-09 07:06] LABS: HEPATITIS B CORE AB, IgM Negative (Negative); HEPATITIS B SURFACE AG Negative (Negative); HEPATITIS C VIRUS AB <0.1 s/co ratio (0.0-0.9)
[2018-06-09 08:00] VITALS: BP_SYST 136
[2018-06-09] MEDS: ARIPiprazole 5 MG TAB PO SCH (08:31)
[2018-06-09] MEDS: ATORVASTATIN 10 MG TABLET PO SCH (08:31)
[2018-06-09] MEDS: ASPIRIN 81 MG TABLET(ECOTRIN) PO SCH (08:31)
[2018-06-09] MEDS: METHIMAZOLE 5 MG TABLET PO SCH ×3 (08:31→20:59)
[2018-06-09] MEDS: POLYETHYLENE GLYCOL 3350, 17 GM/ POWD.PACK PO SCH (08:32)
[2018-06-09] MEDS: LITHIUM CARBONATE 300 MG TABLET.SA PO SCH ×2 (08:32→20:59)
[2018-06-09] MEDS: amLODIPine BESYLATE 5 MG TABLET PO SCH (08:32)
[2018-06-09] MEDS: MINERAL OIL/PETROLATUM,WHITE 113 GM CREAM.GM. TP SCH ×2 (08:33→20:59)
[2018-06-09 12:00] VITALS: BP_SYST 120
[2018-06-09] MEDS: LORazepam 2 MG/ML VIAL IVP PRN ×2 (13:31→23:29)
[2018-06-09 16:00] VITALS: BP_SYST 125
[2018-06-09 20:00] VITALS: BP_SYST 125
[2018-06-10 00:30] VITALS: BP_SYST 140
[2018-06-10 07:06] LABS: BASOPHILS # (AUTO) 0.1 K/uL (0.0-0.2); BASOPHILS % (AUTO) 0.7 % (0.0-2.0); EOSINOPHILS # (AUTO) 0.2 K/uL (0.0-0.4); EOSINOPHILS % (AUTO) 2.5 % (0.0-4.0); HEMATOCRIT 42.5 % (36-48); HEMOGLOBIN 13.5 g/dL (12.0-16.0); LYMPHOCYTES # (AUTO) 1.4 K/uL (1.0-5.5); LYMPHOCYTES % (AUTO) 15.5 % (20.5-51.5); MEAN CORPUSCULAR HEMOGLOBIN 31 pg (27-31); MEAN CORPUSCULAR HGB CONC 32 % (32-36); MEAN CORPUSCULAR VOLUME 96 fL (79.0-98.0); MONOCYTES # (AUTO) 0.9 K/uL (0.0-1.0); MONOCYTES % (AUTO) 9.3 % (1.7-9.3); NEUTROPHILS # (AUTO) 6.6 K/uL (1.8-7.7); PLATELET COUNT (AUTO) 323 K/uL (130-430); RED BLOOD CELL COUNT(AUTO) 4.42 MIL/uL (4.2-6.2); RED CELL DISTRIBUTION WIDTH 13.4 % (9.0-15.0); WHITE BLOOD COUNT (AUTO) 9.2 K/uL (4.8-10.8)
[2018-06-10 07:16] LABS: CALCIUM 11.4 mg/dL (8.4-11.0); CREATININE 1.58 mg/dL (0.55-1.30); PHOSPHORUS 3.9 mg/dL (2.7-4.5); POTASSIUM 5.6 mmol/L (3.5-5.1)
[2018-06-10] MEDS: D5W 1,000 ML IV SCH ×2 (07:27→18:21)
[2018-06-10 08:00] VITALS: BP_SYST 141
[2018-06-10] MEDS: POLYETHYLENE GLYCOL 3350, 17 GM/ POWD.PACK PO SCH (08:48)
[2018-06-10] MEDS: LORazepam 2 MG/ML VIAL IVP PRN (08:54)
[2018-06-10] MEDS: METHIMAZOLE 5 MG TABLET PO SCH ×3 (08:58→21:37)
[2018-06-10] MEDS: LITHIUM CARBONATE 300 MG TABLET.SA PO SCH ×2 (08:58→21:37)
[2018-06-10] MEDS: ACETAMINOPHEN 325 MG TABLET PO PRN ×2 (08:58→17:35)
[2018-06-10] MEDS: ARIPiprazole 5 MG TAB PO SCH (09:00)
[2018-06-10] MEDS: amLODIPine BESYLATE 5 MG TABLET PO SCH (09:00)
[2018-06-10] MEDS: ATORVASTATIN 10 MG TABLET PO SCH (09:00)
[2018-06-10] MEDS: ASPIRIN 81 MG TABLET(ECOTRIN) PO SCH (09:00)
[2018-06-10] MEDS: MINERAL OIL/PETROLATUM,WHITE 113 GM CREAM.GM. TP SCH ×2 (09:01→21:40)
[2018-06-10 11:20] VITALS: BP_SYST 127
[2018-06-10] MEDS ORDERED: SODIUM POLYSTYRENE SULFONATE 15 GM/60 ML UDBTL PO ONE (12:15)
[2018-06-10 15:48] VITALS: BP_SYST 119
[2018-06-10 21:17] VITALS: BP_SYST 122
[2018-06-11 00:12] VITALS: BP_SYST 131
[2018-06-11] MEDS: D5W 1,000 ML IV SCH ×3 (04:43→21:26)
[2018-06-11 08:00] VITALS: BP_SYST 136
[2018-06-11 08:27] LABS: BASOPHILS % (AUTO) 0.7 % (0.0-2.0); EOSINOPHILS # (AUTO) 0.2 K/uL (0.0-0.4); EOSINOPHILS % (AUTO) 3.9 % (0.0-4.0); HEMATOCRIT 37.9 % (36-48); HEMOGLOBIN 12.5 g/dL (12.0-16.0); LYMPHOCYTES # (AUTO) 1.2 K/uL (1.0-5.5); LYMPHOCYTES % (AUTO) 19.5 % (20.5-51.5); MEAN CORPUSCULAR HEMOGLOBIN 31 pg (27-31); MEAN CORPUSCULAR HGB CONC 33 % (32-36); MEAN CORPUSCULAR VOLUME 95 fL (79.0-98.0); MONOCYTES # (AUTO) 0.6 K/uL (0.0-1.0); MONOCYTES % (AUTO) 9.9 % (1.7-9.3); NEUTROPHILS # (AUTO) 4.2 K/uL (1.8-7.7); PLATELET COUNT (AUTO) 315 K/uL (130-430); RED BLOOD CELL COUNT(AUTO) 3.97 MIL/uL (4.2-6.2); RED CELL DISTRIBUTION WIDTH 13.1 % (9.0-15.0); WHITE BLOOD COUNT (AUTO) 6.2 K/uL (4.8-10.8)
[2018-06-11 08:38] LABS: POTASSIUM 3.4 mmol/L (3.5-5.1)
[2018-06-11] MEDS: ATORVASTATIN 10 MG TABLET PO SCH (08:51)
[2018-06-11] MEDS: ARIPiprazole 5 MG TAB PO SCH (08:51)
[2018-06-11] MEDS: ASPIRIN 81 MG TABLET(ECOTRIN) PO SCH (08:52)
[2018-06-11] MEDS: amLODIPine BESYLATE 5 MG TABLET PO SCH (08:52)
[2018-06-11] MEDS: LITHIUM CARBONATE 300 MG TABLET.SA PO SCH ×2 (08:52→21:26)
[2018-06-11] MEDS: METHIMAZOLE 5 MG TABLET PO SCH ×3 (08:52→21:26)
[2018-06-11 08:53] LABS: PHOSPHORUS 3.8 mg/dL (2.7-4.5); TOTAL BILIRUBIN 0.5 mg/dL (0.0-1.0)
[2018-06-11] MEDS: POLYETHYLENE GLYCOL 3350, 17 GM/ POWD.PACK PO SCH (08:53)
[2018-06-11] MEDS: MINERAL OIL/PETROLATUM,WHITE 113 GM CREAM.GM. TP SCH ×2 (08:53→21:27)
[2018-06-11 09:13] LABS: CALCIUM 10.5 mg/dL (8.4-11.0); CREATININE 1.59 mg/dL (0.55-1.30)
[2018-06-11 13:19] VITALS: BP_SYST 122
[2018-06-11 16:00] VITALS: BP_SYST 139
[2018-06-11 20:16] VITALS: BP_SYST 134
[2018-06-12 00:14] VITALS: BP_SYST 131
[2018-06-12 07:19] VITALS: BP_SYST 115
[2018-06-12 07:48] LABS: CALCIUM 10.4 mg/dL (8.4-11.0); CREATININE 1.49 mg/dL (0.55-1.30); POTASSIUM 3.7 mmol/L (3.5-5.1)
[2018-06-12 07:56] LABS: PHOSPHORUS 2.9 mg/dL (2.7-4.5)
[2018-06-12 08:04] LABS: BASOPHILS # (AUTO) 0.1 K/uL (0.0-0.2); BASOPHILS % (AUTO) 0.9 % (0.0-2.0); EOSINOPHILS # (AUTO) 0.3 K/uL (0.0-0.4); EOSINOPHILS % (AUTO) 4.6 % (0.0-4.0); HEMATOCRIT 38.3 % (36-48); HEMOGLOBIN 12.3 g/dL (12.0-16.0); LYMPHOCYTES # (AUTO) 1.2 K/uL (1.0-5.5); LYMPHOCYTES % (AUTO) 17.1 % (20.5-51.5); MEAN CORPUSCULAR HEMOGLOBIN 31 pg (27-31); MEAN CORPUSCULAR HGB CONC 32 % (32-36); MEAN CORPUSCULAR VOLUME 96 fL (79.0-98.0); MONOCYTES # (AUTO) 0.5 K/uL (0.0-1.0); MONOCYTES % (AUTO) 7.7 % (1.7-9.3); NEUTROPHILS # (AUTO) 4.9 K/uL (1.8-7.7); NEUTROPHILS % (AUTO) 69.7 % (40.0-70.0); PLATELET COUNT (AUTO) 317 K/uL (130-430); RED BLOOD CELL COUNT(AUTO) 3.99 MIL/uL (4.2-6.2); RED CELL DISTRIBUTION WIDTH 13.4 % (9.0-15.0)
[2018-06-12] MEDS: ATORVASTATIN 10 MG TABLET PO SCH (08:16)
[2018-06-12] MEDS: ARIPiprazole 5 MG TAB PO SCH (08:16)
[2018-06-12] MEDS: POLYETHYLENE GLYCOL 3350, 17 GM/ POWD.PACK PO SCH (08:16)
[2018-06-12] MEDS: ACETAMINOPHEN 325 MG TABLET PO PRN (08:17)
[2018-06-12] MEDS: ASPIRIN 81 MG TABLET(ECOTRIN) PO SCH (08:17)
[2018-06-12] MEDS: METHIMAZOLE 5 MG TABLET PO SCH ×4 (08:17→20:39)
[2018-06-12] MEDS: LITHIUM CARBONATE 300 MG TABLET.SA PO SCH ×2 (08:17→20:24)
[2018-06-12] MEDS: amLODIPine BESYLATE 5 MG TABLET PO SCH (08:18)
[2018-06-12] MEDS: MINERAL OIL/PETROLATUM,WHITE 113 GM CREAM.GM. TP SCH ×2 (08:19→20:25)
[2018-06-12 11:29] VITALS: BP_SYST 106
[2018-06-12] MEDS: D5W 1,000 ML IV SCH ×2 (11:42→21:20)
[2018-06-12 16:04] VITALS: BP_SYST 121
[2018-06-12 20:00] VITALS: BP_SYST 125
[2018-06-13 00:13] VITALS: BP_SYST 93
[2018-06-13 06:56] LABS: BASOPHILS % (AUTO) 0.5 % (0.0-2.0); EOSINOPHILS # (AUTO) 0.2 K/uL (0.0-0.4); EOSINOPHILS % (AUTO) 2.5 % (0.0-4.0); HEMATOCRIT 40.6 % (36-48); HEMOGLOBIN 12.7 g/dL (12.0-16.0); LYMPHOCYTES # (AUTO) 0.9 K/uL (1.0-5.5); LYMPHOCYTES % (AUTO) 12.9 % (20.5-51.5); MEAN CORPUSCULAR HEMOGLOBIN 30 pg (27-31); MEAN CORPUSCULAR HGB CONC 31 % (32-36); MEAN CORPUSCULAR VOLUME 96 fL (79.0-98.0); MONOCYTES # (AUTO) 0.7 K/uL (0.0-1.0); MONOCYTES % (AUTO) 9.5 % (1.7-9.3); NEUTROPHILS # (AUTO) 5.5 K/uL (1.8-7.7); NEUTROPHILS % (AUTO) 74.6 % (40.0-70.0); PLATELET COUNT (AUTO) 355 K/uL (130-430); RED BLOOD CELL COUNT(AUTO) 4.23 MIL/uL (4.2-6.2); RED CELL DISTRIBUTION WIDTH 13.3 % (9.0-15.0); WHITE BLOOD COUNT (AUTO) 7.3 K/uL (4.8-10.8)
[2018-06-13 07:01] LABS: CALCIUM 10.9 mg/dL (8.4-11.0); CREATININE 1.49 mg/dL (0.55-1.30); PHOSPHORUS 2.8 mg/dL (2.7-4.5); POTASSIUM 3.8 mmol/L (3.5-5.1)
[2018-06-13 07:55] VITALS: BP_SYST 133
[2018-06-13] MEDS: METHIMAZOLE 5 MG TABLET PO SCH ×3 (08:32→21:00)
[2018-06-13] MEDS: LITHIUM CARBONATE 300 MG TABLET.SA PO SCH ×2 (08:33→21:31)
[2018-06-13] MEDS: ASPIRIN 81 MG TABLET(ECOTRIN) PO SCH (08:33)
[2018-06-13] MEDS: ARIPiprazole 5 MG TAB PO SCH (08:33)
[2018-06-13] MEDS: ATORVASTATIN 10 MG TABLET PO SCH (08:34)
[2018-06-13] MEDS: amLODIPine BESYLATE 5 MG TABLET PO SCH (08:34)
[2018-06-13] MEDS: POLYETHYLENE GLYCOL 3350, 17 GM/ POWD.PACK PO SCH (08:37)
[2018-06-13] MEDS: D5W 1,000 ML IV SCH ×2 (08:39→18:53)
[2018-06-13] MEDS: MINERAL OIL/PETROLATUM,WHITE 113 GM CREAM.GM. TP SCH ×2 (11:00→21:32)
[2018-06-13 11:30] VITALS: BP_SYST 125
[2018-06-13 17:02] VITALS: BP_SYST 126
[2018-06-13 20:00] VITALS: BP_SYST 119
[2018-06-14 00:10] VITALS: BP_SYST 132
[2018-06-14] MEDS: D5W 1,000 ML IV SCH (04:29)
[2018-06-14 07:34] VITALS: BP_SYST 123
[2018-06-14 07:42] LABS: CALCIUM 10.5 mg/dL (8.4-11.0); CREATININE 1.28 mg/dL (0.55-1.30); PHOSPHORUS 2.9 mg/dL (2.7-4.5); POTASSIUM 4.1 mmol/L (3.5-5.1)
[2018-06-14] MEDS: POLYETHYLENE GLYCOL 3350, 17 GM/ POWD.PACK PO SCH (08:16)
[2018-06-14] MEDS: ASPIRIN 81 MG TABLET(ECOTRIN) PO SCH (08:16)
[2018-06-14] MEDS: LITHIUM CARBONATE 300 MG TABLET.SA PO SCH ×2 (08:16→21:10)
[2018-06-14] MEDS: amLODIPine BESYLATE 5 MG TABLET PO SCH (08:17)
[2018-06-14] MEDS: METHIMAZOLE 5 MG TABLET PO SCH ×2 (08:17→21:00)
[2018-06-14] MEDS: ARIPiprazole 5 MG TAB PO SCH (08:17)
[2018-06-14] MEDS: MINERAL OIL/PETROLATUM,WHITE 113 GM CREAM.GM. TP SCH ×2 (08:28→21:10)
[2018-06-14] MEDS: ATORVASTATIN 10 MG TABLET PO SCH (08:30)
[2018-06-14 08:53] LABS: HEMATOCRIT 38.7 % (36-48); HEMOGLOBIN 12.5 g/dL (12.0-16.0); MEAN CORPUSCULAR HEMOGLOBIN 32 pg (27-31); MEAN CORPUSCULAR HGB CONC 32 % (32-36); MEAN CORPUSCULAR VOLUME 98 fL (79.0-98.0); PLATELET COUNT (AUTO) 325 K/uL (130-430); RED BLOOD CELL COUNT(AUTO) 3.96 MIL/uL (4.2-6.2); RED CELL DISTRIBUTION WIDTH 14.6 % (9.0-15.0); WHITE BLOOD COUNT (AUTO) 7.1 K/uL (4.8-10.8)
[2018-06-14 08:54] LABS: BASOPHILS # (AUTO) 0.1 K/uL (0.0-0.2); BASOPHILS % (AUTO) 0.7 % (0.0-2.0); EOSINOPHILS # (AUTO) 0.2 K/uL (0.0-0.4); EOSINOPHILS % (AUTO) 2.7 % (0.0-4.0); LYMPHOCYTES # (AUTO) 1.1 K/uL (1.0-5.5); LYMPHOCYTES % (AUTO) 15.9 % (20.5-51.5); MONOCYTES # (AUTO) 0.7 K/uL (0.0-1.0); MONOCYTES % (AUTO) 9.7 % (1.7-9.3)
[2018-06-14 11:12] VITALS: BP_SYST 126
[2018-06-14 16:55] VITALS: BP_SYST 124
[2018-06-14 20:00] VITALS: BP_SYST 119
[2018-06-14 23:14] VITALS: BP_SYST 115
[2018-06-15] MEDS: D5W 1,000 ML IV SCH ×3 (03:01→21:10)
[2018-06-15 07:19] LABS: HEMATOCRIT 41.5 % (36-48); HEMOGLOBIN 13.4 g/dL (12.0-16.0); MEAN CORPUSCULAR VOLUME 97 fL (79.0-98.0); RED BLOOD CELL COUNT(AUTO) 4.26 MIL/uL (4.2-6.2); WHITE BLOOD COUNT (AUTO) 9.1 K/uL (4.8-10.8)
[2018-06-15 07:20] LABS: BASOPHILS % (AUTO) 0.8 % (0.0-2.0); EOSINOPHILS % (AUTO) 2.7 % (0.0-4.0); LYMPHOCYTES # (AUTO) 1.2 K/uL (1.0-5.5); MEAN CORPUSCULAR HEMOGLOBIN 31 pg (27-31); MEAN CORPUSCULAR HGB CONC 32 % (32-36); MONOCYTES % (AUTO) 8.8 % (1.7-9.3); NEUTROPHILS # (AUTO) 6.8 K/uL (1.8-7.7); NEUTROPHILS % (AUTO) 74.7 % (40.0-70.0); PLATELET COUNT (AUTO) 316 K/uL (130-430); RED CELL DISTRIBUTION WIDTH 14.4 % (9.0-15.0)
[2018-06-15 07:21] LABS: BASOPHILS # (AUTO) 0.1 K/uL (0.0-0.2); EOSINOPHILS # (AUTO) 0.2 K/uL (0.0-0.4); MONOCYTES # (AUTO) 0.8 K/uL (0.0-1.0)
[2018-06-15 07:28] LABS: ALBUMIN 2.8 g/dL (3.4-4.8); CALCIUM 10.7 mg/dL (8.4-11.0); CREATININE 1.3 mg/dL (0.55-1.30); PHOSPHORUS 3.2 mg/dL (2.7-4.5); POTASSIUM 5.5 mmol/L (3.5-5.1); TOTAL BILIRUBIN 0.4 mg/dL (0.0-1.0)
[2018-06-15 08:52] VITALS: BP_SYST 113
[2018-06-15] MEDS: ATORVASTATIN 10 MG TABLET PO SCH (10:00)
[2018-06-15] MEDS: ARIPiprazole 5 MG TAB PO SCH (10:00)
[2018-06-15] MEDS: POLYETHYLENE GLYCOL 3350, 17 GM/ POWD.PACK PO SCH (10:00)
[2018-06-15] MEDS: amLODIPine BESYLATE 5 MG TABLET PO SCH (10:00)
[2018-06-15] MEDS: ASPIRIN 81 MG TABLET(ECOTRIN) PO SCH (10:00)
[2018-06-15] MEDS: LITHIUM CARBONATE 300 MG TABLET.SA PO SCH ×2 (10:01→21:11)
[2018-06-15] MEDS: MINERAL OIL/PETROLATUM,WHITE 113 GM CREAM.GM. TP SCH ×2 (10:02→21:11)
[2018-06-15] MEDS: METHIMAZOLE 5 MG TABLET PO SCH ×3 (10:09→21:11)
[2018-06-15] MEDS ORDERED: SODIUM POLYSTYRENE SULFONATE 15 GM/60 ML UDBTL PO ONE (11:30)
[2018-06-15 12:31] VITALS: BP_SYST 104
[2018-06-15 16:53] VITALS: BP_SYST 116
[2018-06-15 19:50] VITALS: BP_SYST 130
[2018-06-15] MEDS: ACETAMINOPHEN 325 MG TABLET PO PRN (21:11)
[2018-06-16 00:28] VITALS: BP_SYST 118
[2018-06-16] MEDS: D5W 1,000 ML IV SCH ×3 (06:19→21:27)
[2018-06-16 08:00] VITALS: BP_SYST 106
[2018-06-16 08:29] LABS: CALCIUM 9.8 mg/dL (8.4-11.0); CREATININE 1.23 mg/dL (0.55-1.30); PHOSPHORUS 2.6 mg/dL (2.7-4.5); POTASSIUM 3.9 mmol/L (3.5-5.1)
[2018-06-16] MEDS: ARIPiprazole 5 MG TAB PO SCH (08:42)
[2018-06-16] MEDS: LITHIUM CARBONATE 300 MG TABLET.SA PO SCH ×2 (08:43→21:26)
[2018-06-16] MEDS: amLODIPine BESYLATE 5 MG TABLET PO SCH (08:43)
[2018-06-16] MEDS: POLYETHYLENE GLYCOL 3350, 17 GM/ POWD.PACK PO SCH (08:44)
[2018-06-16] MEDS: METHIMAZOLE 5 MG TABLET PO SCH ×3 (08:44→21:26)
[2018-06-16] MEDS: ASPIRIN 81 MG TABLET(ECOTRIN) PO SCH (08:44)
[2018-06-16 09:21] LABS: BASOPHILS % (AUTO) 0.6 % (0.0-2.0); EOSINOPHILS % (AUTO) 1.2 % (0.0-4.0); HEMATOCRIT 36.2 % (36-48); LYMPHOCYTES # (AUTO) 0.9 K/uL (1.0-5.5); MEAN CORPUSCULAR HEMOGLOBIN 32 pg (27-31); MEAN CORPUSCULAR HGB CONC 33 % (32-36); MEAN CORPUSCULAR VOLUME 97 fL (79.0-98.0); MONOCYTES % (AUTO) 8.8 % (1.7-9.3); NEUTROPHILS # (AUTO) 6.2 K/uL (1.8-7.7); NEUTROPHILS % (AUTO) 78.4 % (40.0-70.0); PLATELET COUNT (AUTO) 265 K/uL (130-430); RED BLOOD CELL COUNT(AUTO) 3.75 MIL/uL (4.2-6.2); RED CELL DISTRIBUTION WIDTH 13.8 % (9.0-15.0); WHITE BLOOD COUNT (AUTO) 7.9 K/uL (4.8-10.8)
[2018-06-16 09:22] LABS: EOSINOPHILS # (AUTO) 0.1 K/uL (0.0-0.4); MONOCYTES # (AUTO) 0.7 K/uL (0.0-1.0)
[2018-06-16] MEDS: MINERAL OIL/PETROLATUM,WHITE 113 GM CREAM.GM. TP SCH ×2 (10:04→21:27)
[2018-06-16] MEDS: ATORVASTATIN 10 MG TABLET PO SCH (10:27)
[2018-06-16 15:50] VITALS: BP_SYST 116
[2018-06-16 20:00] VITALS: BP_SYST 110
[2018-06-16] MEDS: ACETAMINOPHEN 325 MG TABLET PO PRN (21:26)
[2018-06-16 23:32] VITALS: BP_SYST 103
[2018-06-17 08:05] VITALS: BP_SYST 102
[2018-06-17] MEDS: POLYETHYLENE GLYCOL 3350, 17 GM/ POWD.PACK PO SCH (08:08)
[2018-06-17] MEDS: amLODIPine BESYLATE 5 MG TABLET PO SCH (08:09)
[2018-06-17] MEDS: ATORVASTATIN 10 MG TABLET PO SCH (08:09)
[2018-06-17] MEDS: ARIPiprazole 5 MG TAB PO SCH (08:10)
[2018-06-17] MEDS: ASPIRIN 81 MG TABLET(ECOTRIN) PO SCH (08:10)
[2018-06-17] MEDS: METHIMAZOLE 5 MG TABLET PO SCH ×3 (08:10→20:45)
[2018-06-17] MEDS: LITHIUM CARBONATE 300 MG TABLET.SA PO SCH ×2 (08:10→20:45)
[2018-06-17 10:12] LABS: CALCIUM 10.3 mg/dL (8.4-11.0); CREATININE 1.2 mg/dL (0.55-1.30); PHOSPHORUS 2.9 mg/dL (2.7-4.5); POTASSIUM 3.6 mmol/L (3.5-5.1)
[2018-06-17 11:00] LABS: HEMATOCRIT 34.4 % (36-48); HEMOGLOBIN 11.6 g/dL (12.0-16.0); MEAN CORPUSCULAR HEMOGLOBIN 32 pg (27-31); MEAN CORPUSCULAR HGB CONC 34 % (32-36); MEAN CORPUSCULAR VOLUME 96 fL (79.0-98.0)
[2018-06-17 11:01] LABS: BASOPHILS % (AUTO) 0.3 % (0.0-2.0); EOSINOPHILS # (AUTO) 0.2 K/uL (0.0-0.4); EOSINOPHILS % (AUTO) 3.4 % (0.0-4.0); LYMPHOCYTES # (AUTO) 0.9 K/uL (1.0-5.5); LYMPHOCYTES % (AUTO) 15.3 % (20.5-51.5); MONOCYTES # (AUTO) 0.7 K/uL (0.0-1.0); MONOCYTES % (AUTO) 11.2 % (1.7-9.3); NEUTROPHILS # (AUTO) 4.2 K/uL (1.8-7.7); NEUTROPHILS % (AUTO) 69.8 % (40.0-70.0); PLATELET COUNT (AUTO) 238 K/uL (130-430); RED CELL DISTRIBUTION WIDTH 14.1 % (9.0-15.0)
[2018-06-17 12:16] VITALS: BP_SYST 97
[2018-06-17] MEDS: MINERAL OIL/PETROLATUM,WHITE 113 GM CREAM.GM. TP SCH ×2 (15:06→20:46)
[2018-06-17 16:00] VITALS: BP_SYST 105
[2018-06-17] MEDS: D5W 1,000 ML IV SCH ×2 (16:00→22:52)
[2018-06-17 19:50] VITALS: BP_SYST 107
[2018-06-17 23:38] VITALS: BP_SYST 110
[2018-06-18 08:05] VITALS: BP_SYST 113
[2018-06-18 08:09] LABS: ALBUMIN 2.5 g/dL (3.4-4.8); CALCIUM 10.2 mg/dL (8.4-11.0); CREATININE 1.31 mg/dL (0.55-1.30); PHOSPHORUS 2.9 mg/dL (2.7-4.5); POTASSIUM 4.2 mmol/L (3.5-5.1); TOTAL BILIRUBIN 0.3 mg/dL (0.0-1.0)
[2018-06-18 09:03] LABS: HEMATOCRIT 35.8 % (36-48); HEMOGLOBIN 11.8 g/dL (12.0-16.0); MEAN CORPUSCULAR HEMOGLOBIN 32 pg (27-31); MEAN CORPUSCULAR HGB CONC 33 % (32-36); MEAN CORPUSCULAR VOLUME 96 fL (79.0-98.0); RED BLOOD CELL COUNT(AUTO) 3.72 MIL/uL (4.2-6.2); RED CELL DISTRIBUTION WIDTH 14.1 % (9.0-15.0)
[2018-06-18 09:04] LABS: BASOPHILS % (AUTO) 0.6 % (0.0-2.0); EOSINOPHILS # (AUTO) 0.2 K/uL (0.0-0.4); EOSINOPHILS % (AUTO) 2.7 % (0.0-4.0); LYMPHOCYTES # (AUTO) 1.2 K/uL (1.0-5.5); LYMPHOCYTES % (AUTO) 14.8 % (20.5-51.5); MONOCYTES # (AUTO) 0.9 K/uL (0.0-1.0); MONOCYTES % (AUTO) 11.7 % (1.7-9.3); NEUTROPHILS # (AUTO) 5.6 K/uL (1.8-7.7); NEUTROPHILS % (AUTO) 70.2 % (40.0-70.0); PLATELET COUNT (AUTO) 273 K/uL (130-430)
[2018-06-18] MEDS: POLYETHYLENE GLYCOL 3350, 17 GM/ POWD.PACK PO SCH (09:36)
[2018-06-18] MEDS: ATORVASTATIN 10 MG TABLET PO SCH (09:37)
[2018-06-18] MEDS: LITHIUM CARBONATE 300 MG TABLET.SA PO SCH ×2 (09:37→20:21)
[2018-06-18] MEDS: METHIMAZOLE 5 MG TABLET PO SCH ×3 (09:37→20:22)
[2018-06-18] MEDS: ARIPiprazole 5 MG TAB PO SCH (09:37)
[2018-06-18] MEDS: ASPIRIN 81 MG TABLET(ECOTRIN) PO SCH (09:37)
[2018-06-18] MEDS: amLODIPine BESYLATE 5 MG TABLET PO SCH (09:37)
[2018-06-18] MEDS: MINERAL OIL/PETROLATUM,WHITE 113 GM CREAM.GM. TP SCH ×2 (09:38→20:22)
[2018-06-18] MEDS: D5W 1,000 ML IV SCH ×2 (10:54→20:21)
[2018-06-18 12:07] VITALS: BP_SYST 135
[2018-06-18 16:00] VITALS: BP_SYST 110
[2018-06-18 20:00] VITALS: BP_SYST 117
[2018-06-19 02:39] VITALS: BP_SYST 125
[2018-06-19] MEDS: D5W 1,000 ML IV SCH ×2 (04:12→15:31)
[2018-06-19 06:44] LABS: HEMOGLOBIN 11.6 g/dL (12.0-16.0); RED BLOOD CELL COUNT(AUTO) 3.68 MIL/uL (4.2-6.2); WHITE BLOOD COUNT (AUTO) 6.3 K/uL (4.8-10.8)
[2018-06-19 06:45] LABS: HEMATOCRIT 35.3 % (36-48); MEAN CORPUSCULAR HEMOGLOBIN 32 pg (27-31); MEAN CORPUSCULAR HGB CONC 33 % (32-36); MEAN CORPUSCULAR VOLUME 96 fL (79.0-98.0)
[2018-06-19 06:46] LABS: BASOPHILS % (AUTO) 0.4 % (0.0-2.0); EOSINOPHILS % (AUTO) 3.7 % (0.0-4.0); LYMPHOCYTES # (AUTO) 1.1 K/uL (1.0-5.5); LYMPHOCYTES % (AUTO) 18.1 % (20.5-51.5); MONOCYTES # (AUTO) 0.8 K/uL (0.0-1.0); MONOCYTES % (AUTO) 13.1 % (1.7-9.3); NEUTROPHILS # (AUTO) 4.1 K/uL (1.8-7.7); NEUTROPHILS % (AUTO) 64.7 % (40.0-70.0); PLATELET COUNT (AUTO) 284 K/uL (130-430); RED CELL DISTRIBUTION WIDTH 14.1 % (9.0-15.0)
[2018-06-19 06:47] LABS: EOSINOPHILS # (AUTO) 0.2 K/uL (0.0-0.4)
[2018-06-19 07:02] LABS: CALCIUM 10.1 mg/dL (8.4-11.0); CREATININE 1.29 mg/dL (0.55-1.30); POTASSIUM 4.3 mmol/L (3.5-5.1)
[2018-06-19 07:09] LABS: PHOSPHORUS 2.8 mg/dL (2.7-4.5)
[2018-06-19 08:37] VITALS: BP_SYST 103
[2018-06-19] MEDS: ARIPiprazole 5 MG TAB PO SCH (10:02)
[2018-06-19] MEDS: ASPIRIN 81 MG TABLET(ECOTRIN) PO SCH (10:02)
[2018-06-19] MEDS: ATORVASTATIN 10 MG TABLET PO SCH (10:02)
[2018-06-19] MEDS: LITHIUM CARBONATE 300 MG TABLET.SA PO SCH ×2 (10:03→21:25)
[2018-06-19] MEDS: POLYETHYLENE GLYCOL 3350, 17 GM/ POWD.PACK PO SCH (10:03)
[2018-06-19] MEDS: amLODIPine BESYLATE 5 MG TABLET PO SCH (10:03)
[2018-06-19] MEDS: METHIMAZOLE 5 MG TABLET PO SCH ×3 (10:03→21:25)
[2018-06-19] MEDS: MINERAL OIL/PETROLATUM,WHITE 113 GM CREAM.GM. TP SCH ×2 (10:04→21:26)
[2018-06-19 12:45] VITALS: BP_SYST 100
[2018-06-19 16:52] VITALS: BP_SYST 102
[2018-06-19 20:00] VITALS: BP_SYST 123
[2018-06-19 23:42] VITALS: BP_SYST 108
[2018-06-20] MEDS: D5W 1,000 ML IV SCH (00:44)
[2018-06-20 07:57] LABS: CALCIUM 10.2 mg/dL (8.4-11.0); CREATININE 1.28 mg/dL (0.55-1.30); POTASSIUM 4.7 mmol/L (3.5-5.1)
[2018-06-20 08:08] LABS: PHOSPHORUS 3.2 mg/dL (2.7-4.5)
[2018-06-20 08:15] VITALS: BP_SYST 107
[2018-06-20 08:42] LABS: RED BLOOD CELL COUNT(AUTO) 3.69 MIL/uL (4.2-6.2); WHITE BLOOD COUNT (AUTO) 7.2 K/uL (4.8-10.8)
[2018-06-20 08:43] LABS: HEMATOCRIT 35.5 % (36-48); HEMOGLOBIN 11.8 g/dL (12.0-16.0); MEAN CORPUSCULAR HEMOGLOBIN 32 pg (27-31); MEAN CORPUSCULAR HGB CONC 33 % (32-36); MEAN CORPUSCULAR VOLUME 96 fL (79.0-98.0); NEUTROPHILS % (AUTO) 66.5 % (40.0-70.0); PLATELET COUNT (AUTO) 303 K/uL (130-430); RED CELL DISTRIBUTION WIDTH 14.3 % (9.0-15.0)
[2018-06-20 08:44] LABS: BASOPHILS % (AUTO) 0.5 % (0.0-2.0); EOSINOPHILS # (AUTO) 0.2 K/uL (0.0-0.4); EOSINOPHILS % (AUTO) 3.2 % (0.0-4.0); LYMPHOCYTES # (AUTO) 1.4 K/uL (1.0-5.5); MONOCYTES # (AUTO) 0.8 K/uL (0.0-1.0); MONOCYTES % (AUTO) 10.8 % (1.7-9.3); NEUTROPHILS # (AUTO) 4.8 K/uL (1.8-7.7)
[2018-06-20] MEDS: ASPIRIN 81 MG TABLET(ECOTRIN) PO SCH (09:06)
[2018-06-20] MEDS: METHIMAZOLE 5 MG TABLET PO SCH ×3 (09:06→20:59)
[2018-06-20] MEDS: POLYETHYLENE GLYCOL 3350, 17 GM/ POWD.PACK PO SCH (09:06)
[2018-06-20] MEDS: amLODIPine BESYLATE 5 MG TABLET PO SCH (09:07)
[2018-06-20] MEDS: LITHIUM CARBONATE 300 MG TABLET.SA PO SCH ×2 (09:07→20:59)
[2018-06-20] MEDS: ATORVASTATIN 10 MG TABLET PO SCH (09:07)
[2018-06-20] MEDS: ARIPiprazole 5 MG TAB PO SCH (09:07)
[2018-06-20] MEDS: MINERAL OIL/PETROLATUM,WHITE 113 GM CREAM.GM. TP SCH ×2 (09:08→21:07)
[2018-06-20 13:10] VITALS: BP_SYST 133
[2018-06-20 15:31] VITALS: BP_SYST 112
[2018-06-20 19:20] VITALS: BP_SYST 134
[2018-06-21 00:06] VITALS: BP_SYST 124
[2018-06-21 07:45] VITALS: BP_SYST 109
[2018-06-21 08:20] LABS: HEMATOCRIT 34.1 % (36-48); HEMOGLOBIN 11.3 g/dL (12.0-16.0); MEAN CORPUSCULAR HEMOGLOBIN 32 pg (27-31); MEAN CORPUSCULAR HGB CONC 33 % (32-36); MEAN CORPUSCULAR VOLUME 96 fL (79.0-98.0); RED BLOOD CELL COUNT(AUTO) 3.57 MIL/uL (4.2-6.2); WHITE BLOOD COUNT (AUTO) 7.1 K/uL (4.8-10.8)
[2018-06-21 08:21] LABS: BASOPHILS # (AUTO) 0.1 K/uL (0.0-0.2); BASOPHILS % (AUTO) 0.8 % (0.0-2.0); EOSINOPHILS # (AUTO) 0.3 K/uL (0.0-0.4); EOSINOPHILS % (AUTO) 3.6 % (0.0-4.0); LYMPHOCYTES # (AUTO) 1.6 K/uL (1.0-5.5); LYMPHOCYTES % (AUTO) 22.2 % (20.5-51.5); MONOCYTES # (AUTO) 0.8 K/uL (0.0-1.0); MONOCYTES % (AUTO) 10.7 % (1.7-9.3); NEUTROPHILS # (AUTO) 4.5 K/uL (1.8-7.7); NEUTROPHILS % (AUTO) 62.7 % (40.0-70.0); PLATELET COUNT (AUTO) 302 K/uL (130-430); RED CELL DISTRIBUTION WIDTH 14.1 % (9.0-15.0)
[2018-06-21 08:25] LABS: CALCIUM 9.9 mg/dL (8.4-11.0); CREATININE 1.26 mg/dL (0.55-1.30); PHOSPHORUS 3.6 mg/dL (2.7-4.5); POTASSIUM 4.3 mmol/L (3.5-5.1)
[2018-06-21] MEDS: ARIPiprazole 5 MG TAB PO SCH (09:30)
[2018-06-21] MEDS: amLODIPine BESYLATE 5 MG TABLET PO SCH (09:30)
[2018-06-21] MEDS: METHIMAZOLE 5 MG TABLET PO SCH ×2 (09:30→15:11)
[2018-06-21] MEDS: ATORVASTATIN 10 MG TABLET PO SCH (09:30)
[2018-06-21] MEDS: ASPIRIN 81 MG TABLET(ECOTRIN) PO SCH (09:30)
[2018-06-21] MEDS: POLYETHYLENE GLYCOL 3350, 17 GM/ POWD.PACK PO SCH (09:30)
[2018-06-21] MEDS: LITHIUM CARBONATE 300 MG TABLET.SA PO SCH (09:31)
[2018-06-21] MEDS: MINERAL OIL/PETROLATUM,WHITE 113 GM CREAM.GM. TP SCH (09:31)
[2018-06-21] MEDS: D5W 1,000 ML IV SCH (09:35)
[2018-06-21] MEDS ORDERED: LITH300T27 PO (10:34)
[2018-06-21] MEDS ORDERED: ARIP5TAB10 PO (10:34)
[2018-06-21 13:01] VITALS: BP_SYST 100
[2018-06-21 15:19] VITALS: BP_SYST 99
[2018-06-21 15:33] VITALS: BP_SYST 99
== END 2018-06-21 16:00 | DRG 871 ==
LOC: SED 14:27 → STU 21:48 → SMU 06-13 14:35
PROVIDERS: ADMIT Preventive Medicine Preventive Medicine/Occupational Environmental Medicine; ATTEND Preventive Medicine Preventive Medicine/Occupational Environmental Medicine
DX: A41.9 Sepsis, unspecified organism (principal); G93.41 Metabolic encephalopathy; E43 Unspecified severe protein-calorie malnutrition; F31.30 Bipolar disorder, current episode depressed, mild or moderate severity, unspecified; E87.0 Hyperosmolality and hypernatremia; N39.0 Urinary tract infection, site not specified; N17.9 Acute kidney failure, unspecified; F23 Brief psychotic disorder; Z68.1 Body mass index [BMI] 19.9 or less, adult; K94.23 Gastrostomy malfunction; I12.9 Hypertensive chronic kidney disease with stage 1 through stage 4 chronic kidney disease, or unspecified chronic kidney disease; E78.5 Hyperlipidemia, unspecified; E78.00 Pure hypercholesterolemia, unspecified; B95.8 Unspecified staphylococcus as the cause of diseases classified elsewhere; D64.9 Anemia, unspecified; E03.9 Hypothyroidism, unspecified; E83.39 Other disorders of phosphorus metabolism; E83.41 Hypermagnesemia; E83.52 Hypercalcemia; E87.5 Hyperkalemia; F03.90 Unspecified dementia, unspecified severity, without behavioral disturbance, psychotic disturbance, mood disturbance, and anxiety; J45.909 Unspecified asthma, uncomplicated; M20.11 Hallux valgus (acquired), right foot; M20.12 Hallux valgus (acquired), left foot; M85.80 Other specified disorders of bone density and structure, unspecified site; E87.8 Other disorders of electrolyte and fluid balance, not elsewhere classified; N18.3 Chronic kidney disease, stage 3 (moderate); B95.7 Other staphylococcus as the cause of diseases classified elsewhere; R73.9 Hyperglycemia, unspecified; Y83.8 Other surgical procedures as the cause of abnormal reaction of the patient, or of later complication, without mention of misadventure at the time of the procedure; Y73.8 Miscellaneous gastroenterology and urology devices associated with adverse incidents, not elsewhere classified; Z75.1 Person awaiting admission to adequate facility elsewhere; Z79.899 Other long term (current) drug therapy; Z78.1 Physical restraint status; Z79.82 Long term (current) use of aspirin
CPT/HCPCS: 36415; 70450-TC; 71045; 80048; 80053; 80178-TC; 80202-TC; 80307; 81000-TC; 82140-TC; 82962; 83735-TC; 84100-TC; 84484; 85025; 85651-TC; 86140; 86705; 86706; 86803; 87081; 87086; 87186-TC; 87340; 93005; 96361; 96365; 97110-GP; 97116-GP; 99285; G0378; G0480; G0481; G0482; J1630; J1956; J2060; J3370; J7030; J7042; J7050; J7060